=== PATIENT | male | born 1935 | race Caucasian/White ===

== ENCOUNTER 2016-09-23 08:31 | Inpatient (IN) ==
[2016-09-23] MEDS ORDERED: 0.9 % Sodium Chloride 1,000 ML IVC SCH (08:45)
[2016-09-23] MEDS ORDERED: 0.9 % Sodium Chloride 1,000 ML ONE ×2 (08:57→10:38)
[2016-09-23] MEDS ORDERED: Verapamil 5 MG/2 ML VIAL ONE (10:38)
[2016-09-23] MEDS ORDERED: *HR* Heparin 10,000 UNIT/10 ML VIAL ONE (10:39)
[2016-09-23] MEDS ORDERED: Heparin 1,000 UNITS/500 mL NS 500 ML ONE (10:39)
[2016-09-23] MEDS ORDERED: Nitroglycerin 1,000 MCG/10 ML VIAL IV ONE (10:39)
[2016-09-23] MEDS ORDERED: *HR* FentaNYL (PF) 100 MCG/2 ML VIAL ONE (10:50)
[2016-09-23] MEDS ORDERED: *HR* Midazolam HCl 5 MG/5 ML VIAL IVP ONE (10:50)
--- NOTE | 2016-09-23 11:08 | Pre-Sedation Evaluation ---
Pre-sedation evaluation - Pre-sedation checklist Date of procedure: 09/23/16 Procedure: LEFT HEART CATH Recent Vitals: Last Vital Signs Temp 96.3 F L 09/23/16 08:50 Pulse 86 09/23/16 08:50 Resp 18 09/23/16 08:50 BP 157/89 09/23/16 08:50 Pulse Ox 97 09/23/16 08:50 H&P (including ROS) documented in medical record: Yes Previous reaction to sedatives/anesthetics: No Dietary Status: NPO after Midnight Dentition: full dentition ASA Classification *see protocol: CLASS II-Mild systemic disease Plan of Care: Pt appropriate candidate for procedure/moderate/conscious sedation , Risks/benefits of procedure/sedation discussed w/ patient/family
--- NOTE | 2016-09-23 11:12 | History & Physical Report ---
Date of Encounter: 09/23/16 Time of Encounter: 11:15 24 Hour HP Update - Instructions Instructions: If the History and Physical is less than 30 days old and was completed prior to A.M. admission and or procedure and has NOT been updated on calendar day of procedure please complete this update prior to performing procedure. - Update Patient reports changes in Medical Condition: No Changes in examination, assessment, or condition: No Changes in Medication: No Preop tests/diagnostics Reviewed: Yes Surgery Remains Indicated: Yes Consent for Planned Operative Procedure(s) Verified: Yes
[2016-09-23] MEDS ORDERED: *HR* OxyCODONE/APAP 5/325 TABLET PO PRN (11:50)
[2016-09-23] MEDS ORDERED: *HR* HYDROcodone/Acet 5/325 mg TABLET PO PRN (11:50)
[2016-09-23] MEDS ORDERED: Acetaminophen 325 MG TABLET PO PRN (11:50)
[2016-09-23] MEDS ORDERED: Ondansetron 4 MG/2 ML VIAL IVP PRN (11:50)
[2016-09-23] MEDS ORDERED: *HR* Morphine 2 MG/ML SYRINGE IVP PRN (11:50)
--- NOTE | 2016-09-23 12:55 | Cardiothoracic Consult Note ---
Date of Encounter: 09/23/16 Time of Encounter: 12:52 Assessment and Plan (1) Coronary artery disease Current Visit: Yes Status: Acute The assessment and plan as outlined above was discussed with the patient and/or family members who expressed understanding and agreement. All questions were answered. The patient is a candidate for coronary artery bypass grafting. He did receive Plavix today and will need to be office [address] Smith will be her next week and we'll perform the surgery. The procedure, its risks benefits and alternatives were explained and the patient and his family wish to proceed. At this point, they have no questions. Qualifiers: Coronary Disease-Associated Artery/Lesion type: [place] artery [place] vs. transplanted heart: [place] heart Associated angina: with stable angina Qualified Code(s): I25.118 - Atherosclerotic heart disease of [place] coronary artery with other forms of angina pectoris - History of Present Illness History of present illness: Mr. Bello is a 81 year old male History of present illness. The patient is an 81-year-old gentleman who has had episodic angina. No history of myocardial infarction. Cardiac catheterization revealed preserved left ventricular function with a 90% LAD lesion. 80% circumflex lesion. A 99% lesion of the posterior descending branch of the right which does fill by collateral. Recent echocardiogram revealed no significant valvular disease. Past echo history is notable for hypercholesterolemia and hypertension. Medications include prednisone 9 mg a day and Plavix which he took today. No known allergies. Social history he lives near [place] with his . 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 He is to smoke cigarettes, but quit 18 years ago. Rarely drinks alcohol. Family history is positive for coronary artery disease. Review of systems is negative for stroke or TIA. Past Med Surg Social Fam HX - Past Medical History Medical history: coronary artery disease, GERD, hyperlipidemia, hypertension Psychiatric history: no psych history - Social History Smoking Status: Former smoker Packs per day: QUIT 18 YEARS AGO Smokeless Tobacco Status: No Alcohol use: rarely Drug use: none Medications and Allergies Aspirin [Lo-Dose Aspirin EC] 81 mg PO DAILY 09/23/16 [History] Cholecalciferol (Vitamin D3) [Vitamin D3] 2,000 unit PO DAILY 09/23/16 [History] Clopidogrel [Plavix] 75 mg PO DAILY 09/23/16 [History] Isosorbide MONOnitrate (24 HR) [Imdur] 60 mg PO DAILY 09/23/16 [History] Loratadine [Allergy Relief] 10 mg PO DAILY 09/23/16 [History] Metoprolol XL (24 HR) Succ [Toprol Xl] 1 tab PO DAILY 09/23/16 [History] Multivit-Min/FA/Lycopen/Lutein [Centrum Silver Tablet] 1 each PO DAILY 09/23/16 [History] Omeprazole 20 mg PO DAILY 09/23/16 [History] PredniSONE [Abbey] 4 mg PO QPM 09/23/16 [History] PredniSONE [Abbey] 5 mg PO QAM 09/23/16 [History] Simvastatin [Zocor] 40 mg PO HS 09/23/16 [History] Tramadol HCl [Ultram] 50 mg PO QPM 09/23/16 [History] Allergies No Known Allergies Allergy (Verified 09/23/16 08:40) All Systems Review: A 10-system review of systems was performed and is negative for pertinent findings except as documented above in the HPI. Physical Examination Pupils are equal, round and reactive to light and accommodation. He is edentulous. Neck is supple. Trachea in the midline. No thyromegaly or carotid bruits. Lungs are clear to percussion and auscultation. Heart is in a regular rate and rhythm. No murmurs, gallops or rubs. Abdomen is benign. No tenderness, rebound or guarding. No hepatosplenomegaly or masses. Extremities without edema. 1+ pulses. No saphenous vein strippings. Cranial nerves, motor and sensory intact. He is hard of hearing. Consult Discharge Plan - Plan Referrals: Kapil Lin MD [Primary Care Provider] -
[2016-09-23] MEDS: traMADol 50 MG TABLET PO SCH (17:16)
[2016-09-23] MEDS: predniSONE 1 MG TABLET PO SCH (17:46)
--- NOTE | 2016-09-24 07:21 | Cardiothoracic Progress Note ---
Date of Encounter: 09/24/16 Time of Encounter: 07:20 - Assessment and plan (1) Coronary artery disease Current Visit: Yes Status: Acute The patient will be scheduled for open heart surgery in the middle of next week. He has been on Plavix and did receive a dose yesterday. At this point, he has no questions. Qualifiers: Coronary Disease-Associated Artery/Lesion type: [place] artery [place] vs. transplanted heart: [place] heart Associated angina: with stable angina Qualified Code(s): I25.118 - Atherosclerotic heart disease of [place] coronary artery with other forms of angina pectoris - Subjective Interval history: The patient has had no angina and no chest pain. Vital Signs, Last 4 Hours Temp Pulse Resp BP Pulse Ox 09/24/16 04:00 98.0 F 63 16 142/84 94 Oxgyen Flow Rate Oxygen Flow Rate (LPM) 0 Weight 09/22/16 09/23/16 09/24/16 23:59 23:59 23:59 Weight 104.922 kg 105.6 kg Lungs are clear to percussion and auscultation. Heart is in a normal sinus rhythm. Consult Discharge Plan - Plan Referrals: Kapil Lin MD [Primary Care Provider] -
[2016-09-24] MEDS: Multivit/Ca/Min/Fe/FA 1 TAB TABLET PO SCH (08:00)
[2016-09-24] MEDS: Loratadine 10 MG TABLET PO SCH (08:00)
[2016-09-24] MEDS: Cholecalciferol (D-3) 1,000 UNIT TABLET PO SCH (08:00)
[2016-09-24] MEDS: predniSONE 5 MG TABLET PO SCH (08:00)
[2016-09-24] MEDS: Aspirin Enteric Coated 81 MG Tablet PO SCH (08:00)
[2016-09-24] MEDS: Isosorbide MONOnitrate (24 HR) 60 MG TAB.ER.24H PO SCH (08:00)
[2016-09-24] MEDS: Metoprolol XL (24 HR) Succ 50 MG TAB.ER.24H PO SCH (08:00)
[2016-09-24 10:01] LABS: Basophils # 0.1 K/mcL (0.0-0.2); Basophils % 0.5 %; Eosinophils # 0.4 K/mcL (0.0-0.6); Hematocrit 49.2 % (37.5-50.1); Hemoglobin 15.7 g/dL (12.9-16.9); Immature Granulocytes % 0.4 % (0-4); Lymphocytes # 3.2 K/mcL (0.6-4.6); Lymphocytes % 33.9 %; Mean Corpuscular HGB Conc 31.9 g/dL (31.6-35.5); Mean Corpuscular Hemoglobin 30.8 pg (28.0-33.3); Mean Corpuscular Volume 96.5 fL (83.0-100.0); Mean Platelet Volume 10.5 fL (9.4-12.4); Monocytes # 0.6 K/mcL (0.0-1.3); Monocytes % 6.7 %; Neutrophils # 5.2 K/mcL (1.6-8.9); Platelet Count 258 K/mcL (140-400); Red Cell Distribution Width 12.9 % (11.5-14.5); Segmented Neutrophils % 54.5 %
[2016-09-24 10:16] LABS: BUN/Creatinine Ratio 14 (6-26); Blood Urea Nitrogen 12 mg/dL (8-26); Calcium 9.7 mg/dL (8.6-10.8); Carbon Dioxide 29 mEq/L (19-29); Chloride 103 mEq/L (98-109); Glucose 126 mg/dL (70-99); Osmolality,Calculated 293 (280-300); Potassium 3.7 mEq/L (3.5-4.5); Sodium 141 mEq/L (136-145); eGFR For African Americans > 60 (> 60); eGFR For Non-African Americans > 60 (> 60)
--- NOTE | 2016-09-24 11:23 | Cardiology Progress Note ---
Date of Encounter: 09/24/16 Time of Encounter: 08:30 Assessment and Plan (1) Coronary artery disease Current Visit: Yes Status: Acute Per Cardiology: Catheterization showed left main 30%, proximal LAD 70%, mid LAD 95%, mid circumflex 70%, and right PDA 99% stenosis with collaterals. Seen by CT surgery with pending CABG Tuesday09/29/16. Was on Plavix as outpatient, currently washing out. Echo shows EF 55-60%, mild diastolic dysfunction, normal RV structure and function, no significant valvular dysfunction, no SWMA. On aspirin , statin (will switch/increase to Lipitor 80mg), beta lior, and long-acting nitrate. Chest pain-free-- titrate Imdur if needed. Qualifiers: Coronary Disease-Associated Artery/Lesion type: [place] artery [place] vs. transplanted heart: [place] heart Associated angina: with stable angina Qualified Code(s): I25.118 - Atherosclerotic heart disease of [place] coronary artery with other forms of angina pectoris (2) HTN (hypertension) Current Visit: Yes Status: Chronic Per Cardiology: Known history of hypertension. On home dose of beta lior. Heart rate in the 50 to 60s. Will add Norvasc 5 mg by mouth daily monitor blood pressure. Qualifiers: Hypertension type: essential hypertension Qualified Code(s): I10 - Essential (primary) hypertension Discussion w patient/family: The assessment and plan as outlined above was discussed with the patient who expressed understanding and agreement. All questions were answered. Thank you for involving us in the care of your patient. Please call with any questions. Subjective Principal diagnosis: CAD, Pending CABG, S/p cath Interval history: Patient denies any chest pain, short of breath, palpitations. Reports some mild right wrist soreness. Objective Vital Signs, Last 4 Hours Temp Pulse Resp BP Pulse Ox 09/24/16 08:00 97.7 F 60 16 172/87 96 General: Conversant, No Apparent Distress HEENT: Atraumatic, Normocephaly, Mucus Membranes Moist Neck: No JVD, Normal carotid pulses Cardiac: Reg Rate and Rhythm, Normal S1 and S2, No Murmur Lungs: Normal Breath Sounds, No Wheeze, Rales, Rhonchi Neuro: Alert and responsive, No focal deficits noted Abdomen: Soft, Non-Tender Skin: No rashes noted on visualized skin, Other (Right wrist site dry and intact , no hematoma, no ecchymosis, right radial pulse 2+ palpable) Musculoskeletal: No Chest Wall Tenderness Extremities: No Clubbing, No Cyanosis, No Edema, Normal Pulses Results 09/24/16 08:53 09/24/16 08:53 Lab Results - Imaging and Cardiology Echo: report reviewed Cardiac cath: report reviewed - EKG Interpretation EKG results cardiology: other (Sr on tele) Consult Discharge Plan - Plan Referrals: Kapil Lin MD [Primary Care Provider] -
[2016-09-24] MEDS: amLODIPine 5 MG TABLET PO SCH (11:44)
[2016-09-24] MEDS: traMADol 50 MG TABLET PO SCH (17:33)
[2016-09-24] MEDS: predniSONE 1 MG TABLET PO SCH (17:34)
--- NOTE | 2016-09-25 08:01 | Cardiothoracic Progress Note ---
Date of Encounter: 09/25/16 Time of Encounter: 08:00 - Assessment and plan (1) Coronary artery disease Current Visit: Yes Status: Acute The patient is off Plavix and will be scheduled for open heart surgery in the middle of the week. Qualifiers: Coronary Disease-Associated Artery/Lesion type: [place] artery [place] vs. transplanted heart: [place] heart Associated angina: with stable angina Qualified Code(s): I25.118 - Atherosclerotic heart disease of [place] coronary artery with other forms of angina pectoris - Subjective Interval history: The patient has no chest pain and no complaints. Vital Signs, Last 4 Hours Temp Pulse Resp BP Pulse Ox 09/25/16 06:49 97.9 F 63 16 148/85 97 Oxgyen Flow Rate Oxygen Flow Rate (LPM) 0 Weight 09/23/16 09/24/16 09/25/16 23:59 23:59 23:59 Weight 104.922 kg 105.6 kg Lungs are clear to percussion and auscultation. Heart is in a normal sinus rhythm. - Labs 09/24/16 08:53 09/24/16 08:53 Lab Results, Last 24 hours 09/24/16 09/24/16 08:53 08:53 WBC 9.5 Hgb 15.7 Hct 49.2 Plt Count 258 Sodium 141 Potassium 3.7 Chloride 103 Carbon Dioxide 29 BUN 12 Creatinine 0.87 Glucose 126 H Calcium 9.7 Consult Discharge Plan - Plan Referrals: Kapil Lin MD [Primary Care Provider] -
[2016-09-25] MEDS: Loratadine 10 MG TABLET PO SCH (08:20)
[2016-09-25] MEDS: Cholecalciferol (D-3) 1,000 UNIT TABLET PO SCH (08:20)
[2016-09-25] MEDS: Aspirin Enteric Coated 81 MG Tablet PO SCH (08:20)
[2016-09-25] MEDS: Multivit/Ca/Min/Fe/FA 1 TAB TABLET PO SCH (08:21)
[2016-09-25] MEDS: amLODIPine 5 MG TABLET PO SCH (08:21)
[2016-09-25] MEDS: Metoprolol XL (24 HR) Succ 50 MG TAB.ER.24H PO SCH (08:21)
[2016-09-25] MEDS: predniSONE 5 MG TABLET PO SCH (08:21)
[2016-09-25] MEDS: Isosorbide MONOnitrate (24 HR) 60 MG TAB.ER.24H PO SCH (08:21)
--- NOTE | 2016-09-25 12:22 | Electrocardiograph Report ---
[place] [id number] Test Date: 2016-09-23 Pat Name: Wade Bello Department: 106 Room: 2NE17 Gender: M Sports Physical Therapist: : 1935 Requested By: Kash Contreras Order Number: [id number] Reading MD: Kwesi Wilson Measurements Intervals [place] Rate: 68 P: 39 UT: 176 QRS: -24 QRSD: 93 T: 135 QT: 367 QTc: 385 Interpretive Statements SINUS RHYTHM BORDERLINE LEFT AXIS DEVIATION LEFT VENTRICULAR HYPERTROPHY AND ST-T CHANGE Electronically Signed On 09-25-2016 12:20:30 EDT by Kwesi Wilson
--- NOTE | 2016-09-25 12:28 | Electrocardiograph Report ---
[place] [id number] Test Date: 2016-09-23 Pat Name: Wade Bello Department: 111 Room: 2NE17 Gender: M Quality Nurse: ROCAEL : 1935 Requested By: Kwesi Wilson Order Number: [id number] Reading MD: Kwesi Wilson Measurements Intervals [place] Rate: 72 P: 52 [place]: 185 QRS: -15 QRSD: 96 T: 129 QT: 370 QTc: 394 Interpretive Statements SINUS RHYTHM LEFT VENTRICULAR HYPERTROPHY AND ST-T CHANGE Electronically Signed On 09-25-2016 12:27:05 EDT by Kwesi Wilson
--- NOTE | 2016-09-25 12:37 | Cardiology Progress Note ---
Date of Encounter: 09/25/16 Time of Encounter: 12:00 Assessment and Plan (1) Coronary artery disease Current Visit: Yes Status: Acute Per Cardiology: Elective C 09/23/16 showed left main 30%, proximal LAD 70%, mid LAD 95%, mid circumflex 70%, and right PDA 99% stenosis with collaterals. Seen by CT surgery with pending CABG mid next week. Was on Plavix as outpatient, currently washing out. Echo shows EF 55-60%, mild diastolic dysfunction, normal RV structure and function, no significant valvular dysfunction, no SWMA. On aspirin, statin ( will switch/increase to Lipitor 80mg), beta lior, and long-acting nitrate. Reports one episode of chest pain. May be related to him taking his pills. I will increase imdur. Qualifiers: Coronary Disease-Associated Artery/Lesion type: [place] artery [place] vs. transplanted heart: [place] heart Associated angina: with stable angina Qualified Code(s): I25.118 - Atherosclerotic heart disease of [place] coronary artery with other forms of angina pectoris (2) HTN (hypertension) Current Visit: Yes Status: Chronic Per Cardiology: Blood pressure acceptable. norvasc added yesterday. Qualifiers: Hypertension type: essential hypertension Qualified Code(s): I10 - Essential (primary) hypertension Discussion w patient/family: The assessment and plan as outlined above was discussed with the patient and/or family members who expressed understanding and agreement. All questions were answered. Thank you for involving us in the care of your patient. Please call with any questions. Subjective Principal diagnosis: CAD, Pending CABG, S/p cath Interval history: Reports chest pain this morning after taking his pills. He says it just felt like his pills were stuck in his esophogus. Denies SOB. Objective Vital Signs, Last 4 Hours Pulse Resp BP Pulse Ox 09/25/16 11:17 73 16 136/74 95 General: Conversant, No Apparent Distress HEENT: Atraumatic, Normocephaly, Mucus Membranes Moist Neck: No JVD, Normal carotid pulses Cardiac: Reg Rate and Rhythm, Normal S1 and S2, No Murmur Lungs: Normal Breath Sounds, No Wheeze, Rales, Rhonchi Neuro: Alert and responsive, No focal deficits noted Abdomen: Soft, Non-Tender Skin: No rashes noted on visualized skin Musculoskeletal: No Chest Wall Tenderness Extremities: No Clubbing, No Cyanosis, No Edema, Normal Pulses Results 09/24/16 08:53 09/24/16 08:53 - Imaging and Cardiology Echo: report reviewed Consult Discharge Plan - Plan Referrals: Kapil Lin MD [Primary Care Provider] -
[2016-09-25] MEDS ORDERED: Isosorbide MONOnitrate (24 HR) 30 MG TAB.ER.24H PO ONE (12:41)
[2016-09-25] MEDS: predniSONE 1 MG TABLET PO SCH (17:16)
[2016-09-25] MEDS: traMADol 50 MG TABLET PO SCH (17:17)
[2016-09-26 04:09] LABS: Hematocrit 43.9 % (37.5-50.1); Hemoglobin 14.8 g/dL (12.9-16.9); Mean Corpuscular HGB Conc 33.7 g/dL (31.6-35.5); Mean Corpuscular Hemoglobin 31.8 pg (28.0-33.3); Mean Corpuscular Volume 94.4 fL (83.0-100.0); Mean Platelet Volume 10.2 fL (9.4-12.4); Platelet Count 229 K/mcL (140-400); Red Blood Count 4.65 M/mcL (4.19-5.50); Red Cell Distribution Width 12.9 % (11.5-14.5)
[2016-09-26 04:24] LABS: BUN/Creatinine Ratio 15 (6-26); Blood Urea Nitrogen 13 mg/dL (8-26); Calcium 9.2 mg/dL (8.6-10.8); Carbon Dioxide 24 mEq/L (19-29); Chloride 107 mEq/L (98-109); Glucose 118 mg/dL (70-99); Osmolality,Calculated 289 (280-300); Potassium 4.3 mEq/L (3.5-4.5); Sodium 139 mEq/L (136-145); eGFR For African Americans > 60 (> 60); eGFR For Non-African Americans > 60 (> 60)
[2016-09-26] MEDS: Cholecalciferol (D-3) 1,000 UNIT TABLET PO SCH (08:17)
[2016-09-26] MEDS: Isosorbide MONOnitrate (24 HR) 30 MG TAB.ER.24H PO SCH (08:18)
[2016-09-26] MEDS: Aspirin Enteric Coated 81 MG Tablet PO SCH (08:18)
[2016-09-26] MEDS: Loratadine 10 MG TABLET PO SCH (08:19)
[2016-09-26] MEDS: amLODIPine 5 MG TABLET PO SCH (08:19)
[2016-09-26] MEDS: Metoprolol XL (24 HR) Succ 50 MG TAB.ER.24H PO SCH (08:19)
[2016-09-26] MEDS: Multivit/Ca/Min/Fe/FA 1 TAB TABLET PO SCH (08:19)
[2016-09-26] MEDS: predniSONE 5 MG TABLET PO SCH (08:19)
--- NOTE | 2016-09-26 08:43 | Cardiothoracic Progress Note ---
Date of Encounter: 09/26/16 Time of Encounter: 08:42 - Assessment and plan (1) Coronary artery disease Current Visit: Yes Status: Acute Hopefully, we can do the patient's open heart surgery next Tuesday. Qualifiers: Coronary Disease-Associated Artery/Lesion type: [place] artery [place] vs. transplanted heart: [place] heart Associated angina: with stable angina Qualified Code(s): I25.118 - Atherosclerotic heart disease of [place] coronary artery with other forms of angina pectoris - Subjective Interval history: The patient has no chest pain or angina and no complaints. He is anxious to have his surgery. Vital Signs, Last 4 Hours Temp Pulse Resp BP Pulse Ox 09/26/16 07:12 97.8 F 65 16 154/95 97 Oxgyen Flow Rate Oxygen Flow Rate (LPM) 0 Weight 09/24/16 09/25/16 09/26/16 23:59 23:59 23:59 Weight 105.6 kg 105.3 kg Lungs are clear to percussion and auscultation. Heart is in a normal sinus rhythm. - Labs 09/26/16 03:53 09/26/16 03:53 Lab Results, Last 24 hours 09/26/16 09/26/16 03:53 03:53 WBC 8.9 Hgb 14.8 Hct 43.9 Plt Count 229 Sodium 139 Potassium 4.3 Chloride 107 Carbon Dioxide 24 BUN 13 Creatinine 0.86 Glucose 118 H Calcium 9.2 Consult Discharge Plan - Plan Referrals: Kapil Lin MD [Primary Care Provider] -
--- NOTE | 2016-09-26 09:30 | Cardiology Progress Note ---
Date of Encounter: 09/26/16 Time of Encounter: 09:29 Assessment and Plan (1) Coronary artery disease Current Visit: Yes Status: Acute Per Cardiology: Elective [facility] 09/23/16 showed left main 30%, proximal LAD 70%, mid LAD 95%, mid circumflex 70%, and right PDA 99% stenosis with collaterals. Seen by CT surgery with pending CABG mid next week. Was on Plavix as outpatient, currently washing out. Echo shows EF 55-60%, mild diastolic dysfunction, normal RV structure and function, no significant valvular dysfunction, no SWMA. On aspirin, statin ( will switch/increase to Lipitor 80mg), beta lior, and long-acting nitrate. Qualifiers: Coronary Disease-Associated Artery/Lesion type: [place] artery [place] vs. transplanted heart: [place] heart Associated angina: with stable angina Qualified Code(s): I25.118 - Atherosclerotic heart disease of [place] coronary artery with other forms of angina pectoris Discussion w patient/family: The assessment and plan as outlined above was discussed with the patient and/or family members who expressed understanding and agreement. All questions were answered. Thank you for involving us in the care of your patient. Please call with any questions. Subjective Principal diagnosis: CAD, Pending CABG, S/p cath Interval history: Denies any complaint today. Objective Vital Signs, Last 4 Hours Temp Pulse Resp BP Pulse Ox 09/26/16 07:12 97.8 F 65 16 154/95 97 General: Conversant, No Apparent Distress HEENT: Atraumatic, Normocephaly, Mucus Membranes Moist Neck: No JVD, Normal carotid pulses Cardiac: Reg Rate and Rhythm, Normal S1 and S2, No Murmur Lungs: Normal Breath Sounds, No Wheeze, Rales, Rhonchi Neuro: Alert and responsive, No focal deficits noted Abdomen: Soft, Non-Tender Skin: No rashes noted on visualized skin Musculoskeletal: No Chest Wall Tenderness Results 09/26/16 03:53 09/26/16 03:53 Lab Results 09/26/16 09/26/16 03:53 03:53 WBC 8.9 Hgb 14.8 Hct 43.9 Plt Count 229 Sodium 139 Potassium 4.3 Chloride 107 Carbon Dioxide 24 BUN 13 Creatinine 0.86 Glucose 118 H Calcium 9.2 Consult Discharge Plan - Plan Referrals: Kapil Lin MD [Primary Care Provider] -
[2016-09-26] MEDS: traMADol 50 MG TABLET PO SCH (17:40)
[2016-09-26] MEDS: predniSONE 1 MG TABLET PO SCH (17:40)
[2016-09-27] MEDS: Isosorbide MONOnitrate (24 HR) 30 MG TAB.ER.24H PO SCH (09:32)
[2016-09-27] MEDS: Metoprolol XL (24 HR) Succ 50 MG TAB.ER.24H PO SCH (09:32)
[2016-09-27] MEDS: Multivit/Ca/Min/Fe/FA 1 TAB TABLET PO SCH (09:32)
[2016-09-27] MEDS: Cholecalciferol (D-3) 1,000 UNIT TABLET PO SCH (09:34)
[2016-09-27] MEDS: Loratadine 10 MG TABLET PO SCH (09:35)
[2016-09-27] MEDS: Aspirin Enteric Coated 81 MG Tablet PO SCH (09:35)
[2016-09-27] MEDS: amLODIPine 5 MG TABLET PO SCH (09:35)
[2016-09-27] MEDS: predniSONE 5 MG TABLET PO SCH (09:35)
[2016-09-27] MEDS ORDERED: ceFAZolin 2,000 MG in D5% in Water 100 ML IVPB ONE ×2 (09:37→10:00)
--- NOTE | 2016-09-27 09:37 | Cardiothoracic Progress Note ---
Date of Encounter: 09/27/16 Time of Encounter: 09:36 - Assessment and plan (1) Coronary artery disease Current Visit: Yes Status: Acute The patient denies any substernal chest pain or shortness of breath. He is tentatively scheduled for CABG on Tuesday, September 29, 2016. The assessment and plan as outlined above was discussed with the patient and/or family members who expressed understanding and agreement. All questions were answered. Qualifiers: Coronary Disease-Associated Artery/Lesion type: [place] artery [place] vs. transplanted heart: [place] heart Associated angina: with stable angina Qualified Code(s): I25.118 - Atherosclerotic heart disease of [place] coronary artery with other forms of angina pectoris - Subjective Interval history: The patient denies any substernal chest pain or shortness of breath. Vital Signs, Last 4 Hours Temp Pulse Resp BP Pulse Ox 09/27/16 07:30 97.7 F 62 18 157/85 92 Oxgyen Flow Rate Oxygen Flow Rate (LPM) 0 Weight 09/25/16 09/26/16 09/27/16 23:59 23:59 23:59 Weight 105.3 kg - Physical Examination General: Conversant, No Apparent Distress Neck: No JVD Cardiac: Reg Rate and Rhythm, Normal S1 and S2, No Murmur Lungs: Normal Breath Sounds, No Wheeze, Rales, Rhonchi Neuro: Alert and responsive, No focal deficits noted Vascular: Normal capillary refill Musculoskeletal: No Chest Wall Tenderness Extremities: No Clubbing, No Cyanosis, No Edema, Normal Pulses - Labs 09/26/16 03:53 09/26/16 03:53 Consult Discharge Plan - Plan Referrals: Kapil Lin MD [Primary Care Provider] -
[2016-09-27 12:17] LABS: Hemoglobin A1C 5.4 %
--- NOTE | 2016-09-27 12:54 | Cardiology Progress Note ---
Date of Encounter: 09/27/16 Time of Encounter: 12:52 Assessment and Plan (1) Coronary artery disease Current Visit: Yes Status: Acute Per Cardiology: Elective C 09/23/16 showed left main 30%, proximal LAD 70%, mid LAD 95%, mid circumflex 70%, and right PDA 99% stenosis with collaterals. Seen by CT surgery with pending CABG Tuesday. Was on Plavix as outpatient, currently washing out. Echo shows EF 55-60%, mild diastolic dysfunction, normal RV structure and function, no significant valvular dysfunction, no SWMA. On aspirin, statin ( will switch/increase to Lipitor 80mg), beta lior, and long-acting nitrate. Qualifiers: Coronary Disease-Associated Artery/Lesion type: [place] artery [place] vs. transplanted heart: [place] heart Associated angina: with stable angina Qualified Code(s): I25.118 - Atherosclerotic heart disease of [place] coronary artery with other forms of angina pectoris (2) HTN (hypertension) Current Visit: Yes Status: Chronic Per Cardiology: Mildly elevated this AM prior to med administration. Will continue to monitor and adjust as necessary. Qualifiers: Hypertension type: essential hypertension Qualified Code(s): I10 - Essential (primary) hypertension Discussion w patient/family: The assessment and plan as outlined above was discussed with the patient and/or family members who expressed understanding and agreement. All questions were answered. Thank you for involving us in the care of your patient. Please call with any questions. I will discuss all the above with Dr. Breen and make changes as necessary. Subjective Principal diagnosis: CAD, Pending CABG, S/p cath Interval history: Pt denies any acute complaints this AM. Denies chest pain or dyspnea. Objective Vital Signs, Last 4 Hours Pulse Ox 09/27/16 09:00 92 Vital Signs Temp Pulse Resp BP Pulse Ox 09/27/16 09:00 92 09/27/16 07:30 97.7 F 62 18 157/85 92 09/26/16 20:27 98.3 F 79 17 145/94 95 09/26/16 15:09 98.3 F 90 16 162/98 97 Intake and Output 09/26/16 09/27/16 09/27/16 23:59 07:59 15:59 Intake Total 240 / 240 240 / 240 Balance 240 / 240 240 / 240 Intake: Oral 240 / 240 240 / 240 Other: Meal Dinner Breakfast Percent of Meal Consumed 100% 75% General: Conversant, No Apparent Distress HEENT: Atraumatic, Normocephaly, Mucus Membranes Moist Neck: No JVD, Normal carotid pulses Cardiac: Reg Rate and Rhythm, Normal S1 and S2, No Murmur Lungs: Normal Breath Sounds, No Wheeze, Rales, Rhonchi Neuro: Alert and responsive, No focal deficits noted Abdomen: Soft, Non-Tender Skin: No rashes noted on visualized skin Musculoskeletal: No Chest Wall Tenderness Extremities: No Clubbing, No Cyanosis, No Edema, Normal Pulses Results 09/26/16 03:53 09/26/16 03:53 Active Medications Acetaminophen (Tylenol) 650 mg PO Q6HR PRN PRN Reason: Mild Pain Stop: 03/25/17 11:51 Acetaminophen/Hydrocodone Bitart ([place] 5-325 Mg) 1 tab PO Q4HR PRN PRN Reason: Moderate Pain Stop: 03/25/17 11:51 Amlodipine Besylate (Norvasc) 5 mg PO DAILY ISAAC PRN Reason: Protocol Stop: 03/26/17 11:31 Last Admin: 09/27/16 09:35 Dose: 5 mg Aspirin (Aspirin Ec) 81 mg PO DAILY [facility] Stop: 03/26/17 09:01 Last Admin: 09/27/16 09:35 Dose: 81 mg Atorvastatin Calcium (Lipitor) 80 mg PO HS [facility] Stop: 03/26/17 21:01 Last Admin: 09/26/16 21:01 Dose: 80 mg Calcium Carbonate (Tums) 1,000 mg PO TID ISAAC PRN Reason: Protocol Stop: 03/28/17 18:01 Last Admin: 09/27/16 09:35 Dose: 1,000 mg Chlorhexidine Gluconate (Chlorhexidine Rinse) 15 ml MM 0700,1900 [facility] Stop: 09/29/16 07:01 Diphenhydramine HCl (Benadryl) 25 mg PO HS PRN PRN Reason: Insomnia Stop: 03/25/17 11:51 Cefazolin Sodium 2,000 mg/ (Dextrose) 100 mls @ 200 mls/hr IVPB PREOP ONE PRN Reason: Protocol Stop: 09/29/16 07:29 Isosorbide Mononitrate (Imdur) 90 mg PO DAILY [facility] Stop: 03/28/17 09:01 Last Admin: 09/27/16 09:32 Dose: 90 mg Loratadine (Claritin) 10 mg PO DAILY ISAAC PRN Reason: Protocol Stop: 03/26/17 09:01 Last Admin: 09/27/16 09:35 Dose: 10 mg Metoprolol Succinate (Toprol Xl) 50 mg PO DAILY [facility] Stop: 03/26/17 09:01 Last Admin: 09/27/16 09:32 Dose: 50 mg Morphine Sulfate (Morphine Sulfate) 2 mg IVP Q2H PRN PRN Reason: Severe Pain Stop: 03/25/17 11:51 Multivitamins/Calcium (Thera M Plus) 1 tab PO DAILY [facility] Stop: 03/26/17 09:01 Last Admin: 09/27/16 09:32 Dose: 1 tab Omeprazole (Prilosec) 20 mg PO DAILY [facility] Stop: 03/26/17 09:01 Last Admin: 09/27/16 09:32 Dose: 20 mg Ondansetron HCl (Zofran) 4 mg IVP Q6HR PRN; Protocol PRN Reason: Nausea And Vomiting Stop: 03/25/17 11:51 Oxycodone/Acetaminophen (Percocet 5/325) 1 each PO Q4HR PRN PRN Reason: Severe Pain Stop: 03/25/17 11:51 Prednisone (Prednisone) 4 mg PO QPM [facility] Stop: 03/25/17 18:01 Last Admin: 09/26/16 17:40 Dose: 4 mg Prednisone (Prednisone) 5 mg PO QAM [facility] Stop: 03/26/17 09:01 Last Admin: 09/27/16 09:35 Dose: 5 mg Tramadol HCl (Ultram) 50 mg PO QPM [facility] Stop: 03/25/17 18:01 Last Admin: 09/26/16 17:40 Dose: 50 mg Vitamin D (Vitamin D) 2,000 unit PO DAILY [facility] Stop: 03/26/17 09:01 Last Admin: 09/27/16 09:34 Dose: 2,000 unit - Imaging and Cardiology Cardiac cath: report reviewed Consult Discharge Plan - Plan Referrals: Kapil Lin MD [Primary Care Provider] -
--- NOTE | 2016-09-27 15:31 | Anesthesia Evaluation PreOp ---
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: Denies Any Significant HX Other Medical History: GERD Alcohol Use: rarely Drug use: none Medications and Allergies Aspirin [Lo-Dose Aspirin EC] 81 mg PO DAILY 09/23/16 [History] Cholecalciferol (Vitamin D3) [Vitamin D3] 2,000 unit PO DAILY 09/23/16 [History] Clopidogrel [Plavix] 75 mg PO DAILY 09/23/16 [History] Isosorbide MONOnitrate (24 HR) [Imdur] 60 mg PO DAILY 09/23/16 [History] Loratadine [Allergy Relief] 10 mg PO DAILY 09/23/16 [History] Metoprolol XL (24 HR) Succ [Toprol Xl] 50 mg PO DAILY 09/23/16 [History] Multivit-Min/FA/Lycopen/Lutein [Centrum Silver Tablet] 1 each PO DAILY 09/23/16 [History] Nitroglycerin [Nitrostat] 0.4 mg SL Q5M PRN 09/23/16 [History] Omeprazole 20 mg PO DAILY 09/23/16 [History] Simvastatin [Zocor] 40 mg PO HS 09/23/16 [History] Tramadol HCl [Ultram] 50 mg PO BID PRN 09/23/16 [History] predniSONE [PredniSONE] 5 mg PO BIDWM 09/23/16 [History] Allergies No Known Allergies Allergy (Verified 09/23/16 08:40) - Meds/Allergy Pre-op Review Medications Reviewed: Yes Allergies Reviewed: Yes Beta Blockers on Current Med List: Yes If Beta Blockers taken, Date/Time (Last Dose taken): 522 on 09/29 Anesthesia Results - Labs 09/26/16 03:53 09/26/16 03:53 - Imaging EKG: report reviewed Additional studies: cath shows 3 vessel disease, echo shows no valvular disease, EF 55-60% Anesthesia Exam Selected Entries 09/29/16 02:43 Temperature 98.0 F Pulse Rate 67 Respiratory Rate 18 Blood Pressure 136/85 O2 Sat by Pulse Oximetry 90 Height: 69in Weight: 226lbs/103kg NPO (# of Hours): 8 Pain Scale: 0 Pain Scale Used: Numeric (1 - 10) - HEENT Pupil (Motor): EOMI Mallampati: II Teeth: Edentulous Oral Opening: Greater than 3 - NUT PACKER LOC: Oriented NUT PACKER Motor: Normal RUE, Normal LUE, Normal RLE, Normal LLE, Normal Face NUT PACKER Sensory: Normal: RUE, LUE, RLE, LLE, Face - Cardiac Rhythm: Regular Murmur: None - Pulmonary Breath Sounds: bilateral Clear Respiratory Effort: Symmetrical Anesthesia Assess/Plan ASA Score: 3 Modified Living[place] Scale for Level of Consciousness: Cooperative, oriented, and tranquil Anesthetic Plan: General Monitoring Plan: Standard Monitors, A-Line, PAC, JEAN PAUL Recovery Plan: ICU (Discussed risks of GA, lines, JEAN PAUL and blood products. Questions answered and agrees to proceed.)
[2016-09-27] MEDS: traMADol 50 MG TABLET PO SCH (16:47)
[2016-09-27] MEDS: predniSONE 1 MG TABLET PO SCH (16:48)
--- NOTE | 2016-09-28 07:13 | Cardiothoracic Progress Note ---
Date of Encounter: 09/28/16 Time of Encounter: 07:12 - Assessment and plan (1) Coronary artery disease Current Visit: Yes Status: Acute The patient denies any substernal chest pain or shortness of breath. He is tentatively scheduled for CABG on Tuesday, September 29, 2016. The assessment and plan as outlined above was discussed with the patient and/or family members who expressed understanding and agreement. All questions were answered. Qualifiers: Coronary Disease-Associated Artery/Lesion type: [place] artery [place] vs. transplanted heart: [place] heart Associated angina: with stable angina Qualified Code(s): I25.118 - Atherosclerotic heart disease of [place] coronary artery with other forms of angina pectoris - Subjective Interval history: The patient denies any substernal chest pain or shortness of breath. Vital Signs, Last 4 Hours Temp Pulse Resp BP Pulse Ox 09/28/16 06:43 97.5 F L 100 18 153/94 98 09/28/16 05:02 97.7 F 77 16 126/78 96 [place] Flow Rate Oxygen Flow Rate (LPM) 0 Weight 09/26/16 09/27/16 09/28/16 23:59 23:59 23:59 Weight 105.3 kg 103.1 kg - Physical Examination General: Conversant, No Apparent Distress Neck: No JVD, Normal carotid pulses Cardiac: Reg Rate and Rhythm, Normal S1 and S2, No Murmur Lungs: Normal Breath Sounds, No Wheeze, Rales, Rhonchi Neuro: Alert and responsive, No focal deficits noted Vascular: Normal capillary refill Musculoskeletal: No Chest Wall Tenderness Extremities: No Clubbing, No Cyanosis, No Edema - Labs 09/26/16 03:53 09/26/16 03:53 Consult Discharge Plan - Plan Referrals: Kapil Lin MD [Primary Care Provider] -
[2016-09-28] MEDS: Multivit/Ca/Min/Fe/FA 1 TAB TABLET PO SCH (08:40)
[2016-09-28] MEDS: amLODIPine 5 MG TABLET PO SCH (08:40)
[2016-09-28] MEDS: Metoprolol XL (24 HR) Succ 50 MG TAB.ER.24H PO SCH (08:41)
[2016-09-28] MEDS: Cholecalciferol (D-3) 1,000 UNIT TABLET PO SCH (08:41)
[2016-09-28] MEDS: predniSONE 5 MG TABLET PO SCH (08:41)
[2016-09-28] MEDS: Loratadine 10 MG TABLET PO SCH (08:41)
[2016-09-28] MEDS: Isosorbide MONOnitrate (24 HR) 30 MG TAB.ER.24H PO SCH (08:42)
[2016-09-28] MEDS: Aspirin Enteric Coated 81 MG Tablet PO SCH (08:42)
[2016-09-28] MEDS ORDERED: amLODIPine 5 MG TABLET PO ONE (12:00)
--- NOTE | 2016-09-28 12:00 | Cardiology Progress Note ---
Date of Encounter: 09/28/16 Time of Encounter: 11:58 Assessment and Plan (1) Coronary artery disease Current Visit: Yes Status: Acute Per Cardiology: Elective LHC 09/23/16 showed left main 30%, proximal LAD 70%, mid LAD 95%, mid circumflex 70%, and right PDA 99% stenosis with collaterals. Seen by CT surgery with pending CABG Tuesday. Was on Plavix as outpatient, currently washing out. Echo shows EF 55-60%, mild diastolic dysfunction, normal RV structure and function, no significant valvular dysfunction, no SWMA. On aspirin, statin, beta lior, and long-acting nitrate. Qualifiers: Coronary Disease-Associated Artery/Lesion type: [place] artery [place] vs. transplanted heart: [place] heart Associated angina: with stable angina Qualified Code(s): I25.118 - Atherosclerotic heart disease of [place] coronary artery with other forms of angina pectoris (2) HTN (hypertension) Current Visit: Yes Status: Chronic Per Cardiology: Elevated this AM 190/102. Will increase Norvasc to 10mg daily. Qualifiers: Hypertension type: essential hypertension Qualified Code(s): I10 - Essential (primary) hypertension Discussion w patient/family: The assessment and plan as outlined above was discussed with the patient and/or family members who expressed understanding and agreement. All questions were answered. Thank you for involving us in the care of your patient. Please call with any questions. I will discuss all the above with Dr. Breen and make changes as necessary. Subjective Principal diagnosis: CAD, Pending CABG, S/p cath Interval history: Pt denies any acute complaints this AM. Denies chest pain or dyspnea. Objective Vital Signs, Last 4 Hours Temp Pulse Resp BP Pulse Ox 09/28/16 11:05 98.1 F 90 18 190/108 94 09/28/16 09:12 98 Vital Signs Temp Pulse Resp BP Pulse Ox 09/28/16 11:05 98.1 F 90 18 190/108 94 09/28/16 09:12 98 09/28/16 06:43 97.5 F L 100 18 153/94 98 09/28/16 05:02 97.7 F 77 16 126/78 96 09/27/16 19:07 98.4 F 82 17 144/84 97 09/27/16 15:48 98.0 F 72 18 147/87 95 09/27/16 14:55 97.8 F 75 18 145/76 95 Intake and Output 09/27/16 09/28/16 09/28/16 23:59 07:59 15:59 Intake Total 240 / 240 120 / 120 Balance 240 / 240 120 / 120 Intake: Oral 240 / 240 120 / 120 Other: Meal Breakfast Percent of Meal Consumed 50% 100% # Voids 1 1 Weight 103.1 kg Patient Weight 09/28/16 23:59 Weight 103.1 kg General: Conversant, No Apparent Distress HEENT: Atraumatic, Normocephaly, Mucus Membranes Moist Neck: No JVD, Normal carotid pulses Cardiac: Reg Rate and Rhythm Lungs: Normal Breath Sounds Neuro: Alert and responsive, No focal deficits noted Abdomen: Soft, Non-Tender Skin: No rashes noted on visualized skin Musculoskeletal: No Chest Wall Tenderness Extremities: No Clubbing, No Cyanosis, No Edema, Normal Pulses Results 09/26/16 03:53 09/26/16 03:53 Active Medications Acetaminophen (Tylenol) 650 mg PO Q6HR PRN PRN Reason: Mild Pain Stop: 03/25/17 11:51 Acetaminophen/Hydrocodone Bitart ([place] 5-325 Mg) 1 tab PO Q4HR PRN PRN Reason: Moderate Pain Stop: 03/25/17 11:51 Amlodipine Besylate (Norvasc) 5 mg PO DAILY ISAAC PRN Reason: Protocol Stop: 03/26/17 11:31 Last Admin: 09/28/16 08:40 Dose: 5 mg Aspirin (Aspirin Ec) 81 mg PO DAILY [facility] Stop: 03/26/17 09:01 Last Admin: 09/28/16 08:42 Dose: 81 mg Atorvastatin Calcium (Lipitor) 80 mg PO HS [facility] Stop: 03/26/17 21:01 Last Admin: 09/27/16 20:20 Dose: 80 mg Calcium Carbonate (Tums) 1,000 mg PO TID ISAAC PRN Reason: Protocol Stop: 03/28/17 18:01 Last Admin: 09/28/16 08:40 Dose: 1,000 mg Chlorhexidine Gluconate (Chlorhexidine Rinse) 15 ml MM 0700,1900 [facility] Stop: 09/29/16 07:01 Diphenhydramine HCl (Benadryl) 25 mg PO HS PRN PRN Reason: Insomnia Stop: 03/25/17 11:51 Cefazolin Sodium 2,000 mg/ (Dextrose) 100 mls @ 200 mls/hr IVPB PREOP ONE PRN Reason: Protocol Stop: 09/29/16 07:29 Isosorbide Mononitrate (Imdur) 90 mg PO DAILY [facility] Stop: 03/28/17 09:01 Last Admin: 09/28/16 08:42 Dose: 90 mg Loratadine (Claritin) 10 mg PO DAILY [facility] PRN Reason: Protocol Stop: 03/26/17 09:01 Last Admin: 09/28/16 08:41 Dose: 10 mg Metoprolol Succinate (Toprol Xl) 50 mg PO DAILY [facility] Stop: 03/26/17 09:01 Last Admin: 09/28/16 08:41 Dose: 50 mg Morphine Sulfate (Morphine Sulfate) 2 mg IVP Q2H PRN PRN Reason: Severe Pain Stop: 03/25/17 11:51 Multivitamins/Calcium (Thera M Plus) 1 tab PO DAILY [facility] Stop: 03/26/17 09:01 Last Admin: 09/28/16 08:40 Dose: 1 tab Omeprazole (Prilosec) 20 mg PO DAILY [facility] Stop: 03/26/17 09:01 Last Admin: 09/28/16 08:41 Dose: 20 mg Ondansetron HCl (Zofran) 4 mg IVP Q6HR PRN; Protocol PRN Reason: Nausea And Vomiting Stop: 03/25/17 11:51 Oxycodone/Acetaminophen (Percocet 5/325) 1 each PO Q4HR PRN PRN Reason: Severe Pain Stop: 03/25/17 11:51 Prednisone (Prednisone) 4 mg PO QPM [facility] Stop: 03/25/17 18:01 Last Admin: 09/27/16 16:48 Dose: 4 mg Prednisone (Prednisone) 5 mg PO QAM [facility] Stop: 03/26/17 09:01 Last Admin: 09/28/16 08:41 Dose: 5 mg Tramadol HCl (Ultram) 50 mg PO QPM [facility] Stop: 03/25/17 18:01 Last Admin: 09/27/16 16:47 Dose: 50 mg Vitamin D (Vitamin D) 2,000 unit PO DAILY [facility] Stop: 03/26/17 09:01 Last Admin: 09/28/16 08:41 Dose: 2,000 unit - Imaging and Cardiology Cardiac cath: report reviewed Consult Discharge Plan - Plan Referrals: Kapil Lin MD [Primary Care Provider] -
[2016-09-28] MEDS: traMADol 50 MG TABLET PO SCH (17:53)
[2016-09-28] MEDS: predniSONE 1 MG TABLET PO SCH (17:54)
[2016-09-28] MEDS: Chlorhexidine Rinse 15 ML MOUTHWASH MM SCH (18:36)
[2016-09-29] MEDS: Metoprolol XL (24 HR) Succ 50 MG TAB.ER.24H PO SCH (05:23)
[2016-09-29] MEDS: Chlorhexidine Rinse 15 ML MOUTHWASH MM SCH ×2 (05:23→19:57)
[2016-09-29] MEDS: Aspirin Enteric Coated 81 MG Tablet PO SCH (06:27)
[2016-09-29] MEDS ORDERED: *HR* Phenylephrine 10 MG/ML VIAL ONE (06:55)
[2016-09-29] MEDS ORDERED: *HR* Rocuronium Bromide 50 MG/5 ML VIAL ONE (06:55)
[2016-09-29] MEDS ORDERED: *HR* Norepinephrine 4 MG/4 ML VIAL IVC ONE (06:55)
[2016-09-29] MEDS ORDERED: Tranexamic Acid 1,000 MG/10 ML VIAL ONE ×2 (06:56→09:39)
[2016-09-29] MEDS ORDERED: Protamine Sulfate 250 MG/25 ML VIAL IVP ONE (06:56)
[2016-09-29] MEDS ORDERED: Famotidine 20 MG/2 ML VIAL ONE (06:56)
[2016-09-29] MEDS ORDERED: *HR* Etomidate 20 MG/10 ML AMPUL IVP ONE (06:56)
[2016-09-29] MEDS ORDERED: ceFAZolin 2,000 MG in D5% in Water 100 ML IVPB ONE (07:00)
[2016-09-29] MEDS ORDERED: *HR* Midazolam HCl 5 MG/5 ML VIAL IVP ONE (07:03)
[2016-09-29] MEDS ORDERED: *HR* FentaNYL (PF) 1,000 MCG/20 ML VIAL ONE (07:03)
[2016-09-29] MEDS ORDERED: Nitroglycerin 25 MG/250 ML INFUS..BTL IVC ONE ×2 (07:06→10:40)
[2016-09-29] MEDS ORDERED: Insulin Regular, Human 100 UNIT/ML ONE (07:06)
[2016-09-29] MEDS ORDERED: NiCARdipine 2.5 MG/10 ML Syringe IVPB ONE (07:08)
--- NOTE | 2016-09-29 08:40 | Anesthesia Procedures ---
Date of Encounter: 09/29/16 Time of Encounter: 07:45 Procedures: Anesthesia - Arterial Line Consent obtained: written consent Time out performed: Yes Sedation: Versed (mg): 2 Sedation: Fentanyl (mcg): 100 Supplemental Oxygen via Nasal Cannula (L/min): 2 Local Anesthetic: Lidocaine 1% Amount of Anesthetic used (mls): 1 Size (Gauge): 20 Length (inches): 5 Technique Used: sterile prep, guide wire technique, direct puncture technique Post-Procedure: line taped into place, dry sterile dressing placed Patient tolerated procedure: well, no complications Complications: none Site: Radial L (attempt x 1 easy) - Central Line Placement Right IJ Consent obtained: written consent Time out performed: Yes Patient placed on monitor/pulse ox: Yes prep: mask, gown, gloves Central line prep: Chlorhexidine scrub Ultrasound used for placement: Yes Technique: Seldinger Lumen Inserted: Introducer Post procedure: sutured in place, good blood return, all ports aspirated, flushed, capped, sterile dressing applied Patient tolerated procedure: well, no complications Complications: none (attempt x 1 for introducer. [place] passes easily and wedges approx 56cm, no arrythmias with placement.)
[2016-09-29] MEDS ORDERED: amLODIPine 5 MG TABLET PO SCH (09:00)
[2016-09-29] MEDS ORDERED: niCARdipine 40 MG/200 ML MLS IVC ONE (10:40)
[2016-09-29] MEDS ORDERED: Protamine Sulfate 50 MG/5 ML VIAL IVP ONE (10:44)
[2016-09-29] MEDS ORDERED: *HR* Morphine 2 MG/ML SYRINGE IVP PRN (11:22)
[2016-09-29] MEDS ORDERED: Naloxone 0.4 MG/ML INJ IVP PRN (11:22)
[2016-09-29] MEDS ORDERED: Acetaminophen 650 MG RECTAL SUPP RC PRN (11:22)
[2016-09-29] MEDS ORDERED: Insulin Regular, Human 100 UNIT/ML IV PRN (11:22)
[2016-09-29] MEDS ORDERED: Calcium Chloride 1,000 MG in 0.9 % Sodium Chloride 100 ML IVPB PRN (11:22)
[2016-09-29] MEDS ORDERED: *HR* Dextrose 50 % in Water (Syg) 50 ML SYRINGE IVP PRN (11:22)
[2016-09-29] MEDS ORDERED: Magnesium Sulfate 2 GM in D5% in Water 100 ML IVPB PRN (11:22)
[2016-09-29] MEDS ORDERED: 0.9 % Sodium Chloride w KCl 20 MEQ/1,000 ML MLS IVC SCH (11:30)
--- NOTE | 2016-09-29 11:43 | Operative Note ---
Date of procedure: 09/29/16 Pre-op diagnosis: CAD with unstable angina. Post-op diagnosis: same Procedure: 1. CABG 3 (NOLEN to LAD, SVG to D1, SVG to PDA). 2. Endoscopic vein harvesting, greater saphenous vein from left lower extremity. Implants: None. Complications: None. Anesthesia: ALLEN Surgeon: Lorne Smith Surgical Instrument Mechanic: Kwesi Silvestre Specimen: None. Condition: stable Disposition: ICU Procedure in Detail: INDICATIONS FOR OPERATION: The patient is an 81-year-old hypertensive man with hypercholesterolemia who has experienced progressive exertional nonradiating substernal chest pain. He mentioned these symptoms to his primary care physician who referred the patient for cardiac workup. The cardiac catheterization revealed an LVEF 50% with normal LV size and function. Subsequent cardiac catheterization revealed severe 3 vessel CAD. In particular patient has a 90% proximal LAD lesion, a 90% proximal D1 lesion, an 80% mid LCx lesion, and a 99% proximal PDA lesion. He was recommended for CABG. FINDINGS AT OPERATION: The aorta was of normal caliber and slightly thickened. No obvious calcification was appreciated. The coronary arteries measure approximately 2-3 mm in diameter and had mild distal disease, except the LCx which was small and not bypassable. The greater saphenous vein was harvested endoscopically from the left lower extremity from the knee to the groin and was of good quality. The total bypass time was 73 minutes, cross-clamp time 39 minutes, intentional hypothermia 35.3C. DESCRIPTION OF OPERATION: After obtaining informed option for the patient, he was taken to the operating room where satisfactory general endotracheal anesthetic was induced. Appropriate monitoring lines were placed, the patient's chest, and abdomen, and lower extremity were prepped and draped in a sterile fashion. The greater saphenous vein was harvested endoscopically from the left lower extremity from the knee to the groin. The vein was removed, distended, and found to be of good quality. The subcutaneous tissue and skin edges were reapproximated using running Vicryl sutures. Simultaneously a standard median sternotomy incision was made and the sternum divided. The LAD was taken out from its bed and side branches divided between hemoclips. The sternum was and the pericardium opened and reflected laterally. The patient was prepared for cannulation by placing pursestring sutures in the distal ascending aorta, mid-ascending aorta, right atrial appendage. The patient was heparinized when he has to was created and 200 seconds, the distal ascending aorta was cannulated and a dual stage venous cannula was placed to the right atrial appendage and into the inferior vena cava. A stab-in antegrade metabolic and was placed in the mid ascending aorta. The patient was placed on bypass and the temperature allowed to drift to 35.3 C. The distal targets were identified and the aorta was crossclamped. The patient received 700 mL of cold antegrade crystalloid cardioplegia through the aortic root and the patient's heart obtain rapid diastolic arrest. The PDA was opened with the blade and the vein was anastomosed in an end-to- side fashion using running 7-0 Prolene suture. The anastomosis found to be hemostatic. The LCx and its branches were examined; however, no vessels of adequate caliber for bypass were identified. The D1 branch was opened. Blade and the vein was anastomosed in an end-to-side fashion using running 7-0 Prolene suture. The anastomosis found to be hemostatic and the patient received a final dose of cold antegrade crystalloid cardioplegia through the aortic root. The LAD was opened with a [place] blade and the NOLEN was anastomosed to the LAD in an end-to-side fashion using a running 7-0 Prolene suture. The anastomosis found to be hemostatic and the mammary pedicle was tacked to the epicardium using interrupted 5-0 silk suture. Rewarming was begun during this anastomosis. The aortic cross-clamp was released and the heart distended. The veins were measured and cut at appropriate lengths. A partial occluding clamp was placed across the mid ascending aorta and the antegrade cardioplegia cannula was removed. An additional aortotomy site was made 11 blade and both sites were enlarged with a 4 mm punch. The veins were anastomosed in an end-to-side fashion to the artery using a running 5-0 Prolene suture. The vein grafts were occluded with a bulldog clamp and de-aired with 25-gauge needle prior to removing the partial occluding clamp. The proximal distal anastomoses were found to be hemostatic and the proximal anastomoses were marked with radiopaque loops. Two right ventricular temporary epicardial placing these were placed, and 3 chest tubes were placed, 2 in the mediastinum and one into the left pleural space. During rewarming the patient's heart regained normal sinus rhythm spontaneously. In the patient's systemic temperature reached 36C he was ventilated and received volume. He was weaned from bypass required no inotropic support. Protamine was administered and the aortic and venous cannula were removed. The pursestring sutures were secured and the venous cannulation site was reinforced with a 4-0 Prolene suture. The pericardium was was approximated the midline using interrupted 0 silk suture and the sternum was reapproximated using double wires. The pectoralis major fascia, rectus abdominis fascia, subcutaneous tissue , and skin edges were reapproximated using running Vicryl sutures. A negative pressure sterile dressing was applied to the sternotomy incision. The patient was transferred to the ICU in satisfactory postoperative condition. There were no intraoperative complications, and the instrument, needle, and sponge count were correct at end of operation. - Open Heart Detail DONYA (Internal Mammary Artery) Usage: Yes Cardiopulmonary Bypass Time (mins): 73 Aortic Cross Clamp Time (mins): 39 Intentional Hypothermia Temperature (C.): 35.3
[2016-09-29] MEDS: Nitroglycerin 25 MG/250 ML INFUS..BTL IVC SCH ×2 (11:45→18:01)
[2016-09-29] MEDS: niCARdipine 40 MG/200 ML MLS IVC SCH ×3 (11:48→20:59)
[2016-09-29 11:59] LABS: ABG HCO3 30.6 mEQ/L (21-27); ABG Oxygen Saturation 97 % (95-98); ABG PCO2 44 mmHg (35-45); ABG PH 7.45 pH Units (7.32-7.45); ABG PO2 92 mmHg (85-104); Basophils % 0.2 %; Blood Gas FiO2 40 %; Blood Gas PEEP 5 cm H2O; Blood Gas Respiration Rate 10; Blood Gas VT 600 cc; Eosinophils # 0.3 K/mcL (0.0-0.6); Eosinophils % 2.9 %; Hematocrit 31.8 % (37.5-50.1); Hemoglobin 10.7 g/dL (12.9-16.9); Immature Granulocytes % 0.4 % (0-4); Lymphocytes # 1.3 K/mcL (0.6-4.6); Lymphocytes % 11.2 %; Mean Corpuscular HGB Conc 33.6 g/dL (31.6-35.5); Mean Corpuscular Hemoglobin 31.3 pg (28.0-33.3); Monocytes # 0.3 K/mcL (0.0-1.3); Monocytes % 2.6 %; Neutrophils # 9.6 K/mcL (1.6-8.9); Platelet Count 105 K/mcL (140-400); Red Blood Count 3.42 M/mcL (4.19-5.50); Red Cell Distribution Width 12.4 % (11.5-14.5); Segmented Neutrophils % 82.7 %
[2016-09-29 12:04] LABS: INR 1.7; Prothrombin Time 18.3 Seconds (9.4-12.1)
[2016-09-29 12:06] LABS: Activated Partial Thrombo Time 27.5 Seconds (26.0-36.0)
[2016-09-29 12:10] LABS: BUN/Creatinine Ratio 16 (6-26); Blood Urea Nitrogen 12 mg/dL (8-26); Carbon Dioxide 26 mEq/L (19-29); Chloride 107 mEq/L (98-109); Glucose 115 mg/dL (70-99); Magnesium 2.5 mg/dL (1.6-2.6); Osmolality,Calculated 291 (280-300); Potassium 2.9 mEq/L (3.5-4.5); Sodium 140 mEq/L (136-145); eGFR For African Americans > 60 (> 60); eGFR For Non-African Americans > 60 (> 60)
[2016-09-29] MEDS: Albumin Human 5% 50.0 GM/1,000 ML VIAL ONE (12:30)
[2016-09-29] MEDS: Potassium Chloride 40 MEQ/200 ML BAG IVPB PRN ×2 (12:57→14:01)
[2016-09-29] MEDS: Pantoprazole 40 MG VIAL IVP SCH (12:58)
[2016-09-29] MEDS: Metoclopramide 10 MG/2 ML VIAL IVP SCH ×3 (12:58→23:07)
[2016-09-29] MEDS: Isosorbide MONOnitrate (24 HR) 30 MG TAB.ER.24H PO SCH (13:00)
[2016-09-29] MEDS: predniSONE 5 MG TABLET PO SCH (13:00)
[2016-09-29] MEDS: Cholecalciferol (D-3) 1,000 UNIT TABLET PO SCH (13:00)
[2016-09-29] MEDS: Loratadine 10 MG TABLET PO SCH (13:00)
[2016-09-29] MEDS: Multivit/Ca/Min/Fe/FA 1 TAB TABLET PO SCH (13:00)
[2016-09-29] MEDS: Insulin Human Regular 100 UNIT in 0.9 % Sodium Chloride 100 ML IVC SCH (13:10)
[2016-09-29 13:36] LABS: ABG Base Excess 1.9 mEq/L (-2.0 to 3.0); ABG HCO3 28.2 mEQ/L (21-27); ABG PCO2 50 mmHg (35-45); ABG PH 7.36 pH Units (7.32-7.45); ABG PO2 375 mmHg (85-104); ABG TCO2 29.7 mEq/L (20-26)
[2016-09-29 13:37] LABS: ABG Glucose 77 mg/dL (60-95); ABG Hematocrit 42 % (35-51); ABG Ionized Calcium 1.06 mmol/L (1.15-1.35); ABG Oxygen Saturation 100 % (95-98)
[2016-09-29 13:38] LABS: ABG PCO2 34 mmHg (35-45); ABG PH 7.39 pH Units (7.32-7.45)
[2016-09-29 13:39] LABS: ABG Base Excess -3.9 mEq/L (-2.0 to 3.0); ABG HCO3 20.6 mEQ/L (21-27); ABG Hematocrit 27 % (35-51); ABG Oxygen Saturation 98 % (95-98); ABG PO2 98 mmHg (85-104); ABG TCO2 21.6 mEq/L (20-26)
[2016-09-29 13:40] LABS: ABG Glucose 142 mg/dL (60-95); ABG Ionized Calcium 0.71 mmol/L (1.15-1.35)
[2016-09-29 13:42] LABS: ABG Base Excess 4.4 mEq/L (-2.0 to 3.0); ABG HCO3 28.4 mEQ/L (21-27); ABG PCO2 39 mmHg (35-45); ABG PH 7.47 pH Units (7.32-7.45); ABG PO2 552 mmHg (85-104); ABG TCO2 29.6 mEq/L (20-26)
[2016-09-29 13:43] LABS: ABG Glucose 199 mg/dL (60-95); ABG Hematocrit 25 % (35-51); ABG Ionized Calcium 0.97 mmol/L (1.15-1.35); ABG Oxygen Saturation 100 % (95-98)
[2016-09-29 13:45] LABS: ABG Base Excess 4.9 mEq/L (-2.0 to 3.0); ABG Glucose 184 mg/dL (60-95); ABG HCO3 29.2 mEQ/L (21-27); ABG Hematocrit 24 % (35-51); ABG Ionized Calcium 0.96 mmol/L (1.15-1.35); ABG Oxygen Saturation 100 % (95-98); ABG PCO2 41 mmHg (35-45); ABG PH 7.46 pH Units (7.32-7.45); ABG PO2 477 mmHg (85-104); ABG TCO2 30.5 mEq/L (20-26)
[2016-09-29 13:47] LABS: ABG HCO3 23.5 mEQ/L (21-27); ABG Hematocrit 22 % (35-51); ABG PCO2 37 mmHg (35-45); ABG PH 7.41 pH Units (7.32-7.45); ABG PO2 110 mmHg (85-104); ABG TCO2 24.6 mEq/L (20-26)
[2016-09-29 13:48] LABS: ABG Glucose 142 mg/dL (60-95); ABG Ionized Calcium 1.23 mmol/L (1.15-1.35); ABG Oxygen Saturation 98 % (95-98)
[2016-09-29] MEDS ORDERED: *HR* Magnesium Sulfate 2 GM/50 ML PIGGYBACK IVPB ONE (14:14)
[2016-09-29] MEDS ORDERED: Sodium Bicarbonate 50 MEQ/50 ML VIAL IVC ONE (14:14)
[2016-09-29] MEDS ORDERED: *HR* Heparin 10,000 UNIT/10 ML VIAL IV ONE (14:14)
[2016-09-29] MEDS ORDERED: *HR* Phenylephrine 10 MG/ML VIAL IVC ONE (14:14)
[2016-09-29] MEDS ORDERED: Mannitol 25% vial 12.5 GM/50 ML VIAL IVP ONE (14:14)
[2016-09-29] MEDS ORDERED: Lidocaine 2% Syringe 100 MG/5 ML IV ONE (14:14)
[2016-09-29] MEDS ORDERED: Albumin Human 25% 25 GM/100 ML IV.SOLN IV ONE (14:14)
[2016-09-29] MEDS: *HR* Morphine 2 MG/ML SYRINGE IVP PRN ×3 (15:27→19:57)
[2016-09-29 15:44] LABS: ABG Base Excess -0.6 mEq/L (-2.0 to 3.0); ABG HCO3 22.9 mEQ/L (21-27); ABG Oxygen Saturation 99 % (95-98); ABG PCO2 33 mmHg (35-45); ABG PH 7.45 pH Units (7.32-7.45); ABG PO2 112 mmHg (85-104); ABG TCO2 23.9 mEq/L (20-26)
[2016-09-29 15:45] LABS: Blood Gas FiO2 100 %
[2016-09-29] MEDS: *HR* OxyCODONE/APAP 5/325 TABLET PO PRN ×2 (17:13→22:21)
[2016-09-29] MEDS: predniSONE 1 MG TABLET PO SCH (18:04)
[2016-09-29] MEDS: ceFAZolin 2,000 MG in D5% in Water 100 ML IVPB SCH (18:07)
--- NOTE | 2016-09-29 18:07 | Electrocardiograph Report ---
[address] [address] Test Date: 2016-09-29 Pat Name: Wade Bello Department: 109 Room: 02 Gender: M Roller Hand: JESSICA : 1935 Requested By: Lorne Smith Order Number: [id number] Reading MD: Samuel Smith MD Measurements Intervals [employer] Rate: 80 P: 44 IA: 212 QRS: -3 QRSD: 105 T: 145 QT: 402 QTc: 438 Interpretive Statements SINUS RHYTHM WITH FIRST DEGREE AV BLOCK LEFT VENTRICULAR HYPERTROPHY AND ST-T CHANGE Electronically Signed On 09-29-2016 18:05:46 EDT by Samuel Smith MD
[2016-09-29] MEDS: Norepinephrine 4 MG in D5% in Water 250 ML IVC SCH (19:25)
[2016-09-29 19:44] LABS: ABG Base Excess 1.6 mEq/L (-2.0 to 3.0); ABG HCO3 25.8 mEQ/L (21-27); ABG Oxygen Saturation 100 % (95-98); ABG PCO2 38 mmHg (35-45); ABG PH 7.44 pH Units (7.32-7.45); ABG PO2 157 mmHg (85-104); Blood Gas FiO2 80 %
[2016-09-29 22:24] LABS: ABG HCO3 26.5 mEQ/L (21-27); ABG Oxygen Saturation 87 % (95-98); ABG PCO2 40 mmHg (35-45); ABG PH 7.43 pH Units (7.32-7.45); ABG PO2 52 mmHg (85-104); ABG TCO2 27.7 mEq/L (20-26)
[2016-09-29 22:25] LABS: Blood Gas FiO2 40 %
[2016-09-29] MEDS ORDERED: Furosemide 20 MG/2 ML VIAL IVP ONE (23:45)
[2016-09-30] MEDS: ceFAZolin 2,000 MG in D5% in Water 100 ML IVPB SCH (02:01)
[2016-09-30 02:45] LABS: ABG Base Excess 1.4 mEq/L (-2.0 to 3.0); ABG HCO3 24.6 mEQ/L (21-27); ABG Oxygen Saturation 96 % (95-98); ABG PCO2 33 mmHg (35-45); ABG PH 7.48 pH Units (7.32-7.45); ABG PO2 78 mmHg (85-104); ABG TCO2 25.6 mEq/L (20-26); Blood Gas FiO2 35 %
[2016-09-30 03:03] LABS: Basophils % 0.4 %; Eosinophils # 0.3 K/mcL (0.0-0.6); Eosinophils % 3.1 %; Hematocrit 30.4 % (37.5-50.1); Hemoglobin 10.1 g/dL (12.9-16.9); Immature Granulocytes % 0.6 % (0-4); Lymphocytes # 1.6 K/mcL (0.6-4.6); Lymphocytes % 15.2 %; Mean Corpuscular HGB Conc 33.2 g/dL (31.6-35.5); Mean Corpuscular Hemoglobin 31.5 pg (28.0-33.3); Mean Corpuscular Volume 94.7 fL (83.0-100.0); Mean Platelet Volume 10.2 fL (9.4-12.4); Monocytes # 1.1 K/mcL (0.0-1.3); Monocytes % 10.1 %; Neutrophils # 7.4 K/mcL (1.6-8.9); Platelet Count 163 K/mcL (140-400); Red Cell Distribution Width 13.1 % (11.5-14.5); Segmented Neutrophils % 70.6 %
[2016-09-30 03:06] LABS: INR 1.3
[2016-09-30 03:08] LABS: Activated Partial Thrombo Time 24.9 Seconds (26.0-36.0)
[2016-09-30 03:09] LABS: Red Blood Count 3.21 M/mcL (4.19-5.50)
[2016-09-30 03:13] LABS: Prothrombin Time 14.5 Seconds (9.4-12.1)
[2016-09-30 03:21] LABS: BUN/Creatinine Ratio 12 (6-26); Blood Urea Nitrogen 16 mg/dL (8-26); Calcium 8.2 mg/dL (8.6-10.8); Carbon Dioxide 22 mEq/L (19-29); Chloride 110 mEq/L (98-109); Glucose 133 mg/dL (70-99); Magnesium 2.3 mg/dL (1.6-2.6); Osmolality,Calculated 293 (280-300); Potassium 4.3 mEq/L (3.5-4.5); Sodium 140 mEq/L (136-145); eGFR For African Americans > 60 (> 60); eGFR For Non-African Americans 53 (> 60)
[2016-09-30] MEDS: niCARdipine 40 MG/200 ML MLS IVC SCH ×2 (03:51→19:44)
[2016-09-30] MEDS: Nitroglycerin 25 MG/250 ML INFUS..BTL IVC SCH ×3 (03:52→19:48)
[2016-09-30] MEDS: *HR* OxyCODONE/APAP 5/325 TABLET PO PRN ×3 (04:02→18:07)
[2016-09-30] MEDS: Metoclopramide 10 MG/2 ML VIAL IVP SCH ×4 (05:00→23:16)
[2016-09-30 06:02] LABS: ABG Base Excess 1.4 mEq/L (-2.0 to 3.0); ABG HCO3 24.4 mEQ/L (21-27); ABG Oxygen Saturation 94 % (95-98); ABG PCO2 32 mmHg (35-45); ABG PH 7.49 pH Units (7.32-7.45); ABG PO2 63 mmHg (85-104); ABG TCO2 25.4 mEq/L (20-26); Blood Gas FiO2 35 %
[2016-09-30] MEDS: *HR* Morphine 2 MG/ML SYRINGE IVP PRN ×3 (06:10→16:13)
[2016-09-30] MEDS: Albumin Human 5% 50.0 GM/1,000 ML VIAL ONE (07:47)
--- NOTE | 2016-09-30 08:08 | Pulmonology Consult Note ---
<Shaista Snell - Last Filed: 09/30/16 13:37> Date of Encounter: 09/30/16 Time of Encounter: 08:08 Assessment and Plan (1) Coronary artery disease Current Visit: Yes Status: Acute 81 y/o male POD#1 CABGx3 currently on mechanical ventilation. Pre-surgical LVEF 55-60%.CXR shows small left pleural effusion, suspect that this is secondary to fluid overload. Will stop IVF. Recommend diuresis prior to extubation today with extubation to CPAP. EXTRAS CASTING DIRECTOR: Patient alert, able to follow commands and move all extremities. Pulmonary: Intubated, CTAB, CXR shows pleural effusion on the left, suspect secondary to fluid overload. Patient had a small pneumo yesterday that resolved. Will diurese patient with lasix, plan to extubate to CPAP after. Cardiovascular: POD#1 CABGx3. Patient in Afib on cardizem gtt, nitro gtt. [place] kirsten removed this morning. [address]. Will stop D5 fluids, diurese GI: BS hypoactive, no BM since surgery Renal: LEANNA today postop. UOP adequate (986cc 6/, 655cc today). Will continue to monitor ID: No leukocytosis or signs of infection Heme/Onc: H/H stable, continue to monitor. Endocrine: Glucose stable, insulin per protocol. GI Prophylaxis: Protonix DVT Prophylaxis per protocol Nutrition: NPO Lines: all lines checked and no evidence of infections Skin: skin care to prevent pressure ulcers per nursing routine care. CODE STATUS: FULL CODE Qualifiers: Coronary Disease-Associated Artery/Lesion type: [place] artery [place] vs. transplanted heart: [place] heart Associated angina: with stable angina Qualified Code(s): I25.118 - Atherosclerotic heart disease of [place] coronary artery with other forms of angina pectoris (2) Hyperlipidemia Current Visit: Yes Status: Acute Qualifiers: Hyperlipidemia type: unspecified Qualified Code(s): E78.5 - Hyperlipidemia , unspecified (3) HTN (hypertension) Current Visit: Yes Status: Chronic Qualifiers: Hypertension type: essential hypertension Qualified Code(s): I10 - Essential (primary) hypertension History of Present Illness Consult date: 09/30/16 Requesting physician: Lorne Smith Reason for consult: hypoxemia Chief complaint: Chest pain History of present illness: Mr. Bello is an 81 y/o male with a PMH of episodic angina and significant valvular disease, HLD, HTN who is POD#[address] Smith. The patient underwent LHC 09/23/16 which revealed left main 30%, proximal LAD 70%, mid LAD 95 %, mid circumflex 70%, and right PDA 99% stenosis with collaterals. He had been on plavix and was hospitalized for 5 days while the plavix was stopped. He underwent CABG 09/29/16 successfully. The patient has developed post op afib and is currently on a cardizem gtt. Pulmonology was consulted for vent/oxygenation management post op. The patient has a remote history of smoking, but quit 18 years ago. 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 No prior diagnosis of COPD or asthma. Past Med Surg Social Fam HX - Past Medical History Medical history: coronary artery disease, GERD, hyperlipidemia, hypertension Psychiatric history: no psych history - Social History Smoking Status: Former smoker Packs per day: QUIT 18 YEARS AGO Smokeless Tobacco Status: No Alcohol use: rarely Drug use: none Medications and Allergies Aspirin [Lo-Dose Aspirin EC] 81 mg PO DAILY 09/23/16 [History] Cholecalciferol (Vitamin D3) [Vitamin D3] 2,000 unit PO DAILY 09/23/16 [History] Clopidogrel [Plavix] 75 mg PO DAILY 09/23/16 [History] Isosorbide MONOnitrate (24 HR) [Imdur] 60 mg PO DAILY 09/23/16 [History] Loratadine [Allergy Relief] 10 mg PO DAILY 09/23/16 [History] Metoprolol XL (24 HR) Succ [Toprol Xl] 50 mg PO DAILY 09/23/16 [History] Multivit-Min/FA/Lycopen/Lutein [Centrum Silver Tablet] 1 each PO DAILY 09/23/16 [History] Nitroglycerin [Nitrostat] 0.4 mg SL Q5M PRN 09/23/16 [History] Omeprazole 20 mg PO DAILY 09/23/16 [History] Simvastatin [Zocor] 40 mg PO HS 09/23/16 [History] Tramadol HCl [Ultram] 50 mg PO BID PRN 09/23/16 [History] predniSONE [PredniSONE] 5 mg PO BIDWM 09/23/16 [History] Allergies No Known Allergies Allergy (Verified 09/23/16 08:40) ROS unobtainable: due to endotracheal tube Physical Examination Vital Signs: Vital Signs, Last 4 Hours Temp Pulse Resp BP Pulse Ox 09/30/16 07:45 20 137/57 94 09/30/16 07:00 99.3 F 105 19 119/52 93 09/30/16 06:00 99.2 F 90 18 118/47 93 09/30/16 05:58 19 92 09/30/16 05:00 99.2 F 93 18 120/44 91 09/30/16 04:09 99.2 F 92 18 117/45 88 General appearance: no acute distress, alert Eyes: nonicteric ENT: oropharynx moist Neck: supple, no lymphadenopathy, no JVD Effort: normal Inspection: other (sternotomy with dressing in place, [address]) Auscultation: bilateral: clear Cardiovascular: irregular rhythm Gastrointestinal: hypoactive bowel sounds, soft, non-tender, non-distended Integumentary: normal Extremities: no cyanosis, no edema, pink and warm, pulses normal Musculoskeletal: no deformities non-focal exam, pupils equal and round, motor strength normal and symmetric, other (patient follows commands, moves all 4 extremities) mood appropriate, affect normal Ventilator Settings Ventilator Settings: Ventilator Settings, Last 8 Hours Ventilator Mode A/C Ventilator Mode A/C Ventilator Mode A/C Ventilator Mode A/C Ventilator Mode A/C Ventilator Mode A/C Ventilator Mode A/C Ventilator Mode A/C Ventilator Mode A/C Ventilator Mode A/C Ventilator Mode A/C Ventilator Mode A/C Ventilator Tidal Volume 600 Setting Ventilator Tidal Volume 600 Setting Ventilator Tidal Volume 600 Setting Ventilator Tidal Volume 600 Setting Ventilator Tidal Volume 600 Setting Ventilator Tidal Volume 600 Setting Ventilator Tidal Volume 600 Setting Ventilator Tidal Volume 600 Setting Ventilator Tidal Volume 600 Setting Ventilator Tidal Volume 600 Setting Ventilator Tidal Volume 600 Setting Ventilator Tidal Volume 600 Setting Ventilator Respiratory Rate 10 Setting Ventilator Respiratory Rate 10 Setting Ventilator Respiratory Rate 10 Setting Ventilator Respiratory Rate 10 Setting Ventilator Respiratory Rate 10 Setting Ventilator Respiratory Rate 10 Setting Ventilator Respiratory Rate 10 Setting Ventilator Respiratory Rate 10 Setting Ventilator Respiratory Rate 10 Setting Ventilator Respiratory Rate 10 Setting Ventilator Respiratory Rate 10 Setting Ventilator Respiratory Rate 10 Setting Actual Respiratory Rate 20 Actual Respiratory Rate 19 Actual Respiratory Rate 19 Actual Respiratory Rate 17 Actual Respiratory Rate 19 Actual Respiratory Rate 19 Actual Respiratory Rate 19 Actual Respiratory Rate 11 Actual Respiratory Rate 11 Actual Respiratory Rate 18 Positive End Expiratory 5 Pressure Positive End Expiratory 5 Pressure Positive End Expiratory 5 Pressure Positive End Expiratory 5 Pressure Positive End Expiratory 5 Pressure Positive End Expiratory 5 Pressure Positive End Expiratory 5 Pressure Positive End Expiratory 5 Pressure Positive End Expiratory 5 Pressure Positive End Expiratory 5 Pressure Positive End Expiratory 5 Pressure Positive End Expiratory 5 Pressure Peak Inspiratory Airway 29 Pressure Peak Inspiratory Airway 30 Pressure Peak Inspiratory Airway 30 Pressure Peak Inspiratory Airway 28 Pressure Peak Inspiratory Airway 30 Pressure Peak Inspiratory Airway 30 Pressure Peak Inspiratory Airway 30 Pressure Peak Inspiratory Airway 25 Pressure Peak Inspiratory Airway 25 Pressure Peak Inspiratory Airway 25 Pressure Results - Laboratory Findings CBC and BMP: 09/30/16 02:55 09/30/16 02:55 ABG ABG pH 7.49 pH Units (7.32-7.45) H 09/30/16 05:56 ABG pCO2 32 mmHg (35-45) L 09/30/16 05:56 ABG pO2 63 mmHg (85-104) L 09/30/16 05:56 ABG O2 Saturation 94 % (95-98) L 09/30/16 05:56 PT/INR, D-dimer PT 14.5 Seconds (9.4-12.1) H 09/30/16 02:55 Abnormal lab findings: Abnormal lab results RBC 3.21 M/mcL (4.19-5.50) L 09/30/16 02:55 Hgb 10.1 g/dL (12.9-16.9) L 09/30/16 02:55 Hct 30.4 % (37.5-50.1) L 09/30/16 02:55 PT 14.5 Seconds (9.4-12.1) H 09/30/16 02:55 APTT 24.9 Seconds (26.0-36.0) L 09/30/16 02:55 ABG pH 7.49 pH Units (7.32-7.45) H 09/30/16 05:56 ABG pCO2 32 mmHg (35-45) L 09/30/16 05:56 ABG pO2 63 mmHg (85-104) L 09/30/16 05:56 ABG O2 Saturation 94 % (95-98) L 09/30/16 05:56 ABG Hematocrit 22 % (35-51) L 09/29/16 10:14 Potassium 2.7 mEq/L (3.5-5.3) L 09/29/16 10:14 Glucose 142 mg/dL (60-95) H 09/29/16 10:14 Chloride 110 mEq/L (98-109) H 09/30/16 02:55 Creatinine 1.30 mg/dL (0.72-1.25) H D 09/30/16 02:55 Est GFR (Non-Af Amer) 53 (> 60) L 09/30/16 02:55 Glucose 133 mg/dL (70-99) H 09/30/16 02:55 POC Glucose 138 (58-89) H 09/30/16 00:42 Calcium 8.2 mg/dL (8.6-10.8) L 09/30/16 02:55 - Diagnostic Findings Chest x-ray: report reviewed, image reviewed Additional studies: Chest X-Ray 09/30/16 04:00 IMPRESSION: Stable lines and tubes. Stable mild central pulmonary edema and left pleural effusion. No pneumothorax. D/ / 09/30/2016 07:30:38 Wade Siddiqui MD / akash Interpreting Provider: Wade Siddiqui MD - Clinical Findings Intake & Output: Intake & Output 09/29/16 09/30/16 09/30/16 23:59 07:59 15:59 Intake Total 461 / 461 350 / 350 Output Total 1719 / 1719 579 / 579 Balance -1258 / -1258 -229 / -229 Consult Discharge Plan - Plan Referrals: Kapil Lin MD [Primary Care Provider] - <Freddy Sheehan - Last Filed: 09/30/16 14:56> Date of Encounter: 09/30/16 All Systems: A 10-system review of systems was performed and is negative for pertinent findings except as documented above in the HPI. Physical Examination Vital Signs: Vital Signs, Last 4 Hours Temp Pulse Resp BP Pulse Ox 09/30/16 14:29 138/74 92 09/30/16 14:00 86 22 130/77 99 09/30/16 13:10 84 22 101/53 99 09/30/16 12:00 98.1 F 72 18 119/45 94 09/30/16 11:15 17 117/45 94 09/30/16 11:00 76 18 116/45 94 Ventilator Settings Ventilator Settings: Ventilator Settings, Last 8 Hours Ventilator Mode CPAP Ventilator Mode CPAP Ventilator Mode CPAP Ventilator Mode A/C Ventilator Mode A/C Ventilator Mode A/C Ventilator Mode A/C Ventilator Mode A/C Ventilator Mode A/C Ventilator Mode A/C Ventilator Mode A/C Ventilator Tidal Volume 600 Setting Ventilator Tidal Volume 600 Setting Ventilator Tidal Volume 600 Setting Ventilator Tidal Volume 600 Setting Ventilator Tidal Volume 600 Setting Ventilator Tidal Volume 600 Setting Ventilator Tidal Volume 600 Setting Ventilator Tidal Volume 600 Setting Ventilator Respiratory Rate 10 Setting Ventilator Respiratory Rate 10 Setting Ventilator Respiratory Rate 10 Setting Ventilator Respiratory Rate 10 Setting Ventilator Respiratory Rate 10 Setting Ventilator Respiratory Rate 10 Setting Ventilator Respiratory Rate 10 Setting Ventilator Respiratory Rate 10 Setting Actual Respiratory Rate 22 Actual Respiratory Rate 22 Actual Respiratory Rate 22 Actual Respiratory Rate 17 Actual Respiratory Rate 17 Actual Respiratory Rate 18 Actual Respiratory Rate 22 Actual Respiratory Rate 22 Actual Respiratory Rate 22 Actual Respiratory Rate 20 Actual Respiratory Rate 19 Positive End Expiratory 5 Pressure Positive End Expiratory 5 Pressure Positive End Expiratory 5 Pressure Positive End Expiratory 5 Pressure Positive End Expiratory 5 Pressure Positive End Expiratory 5 Pressure Positive End Expiratory 5 Pressure Positive End Expiratory 5 Pressure Positive End Expiratory 5 Pressure Positive End Expiratory 5 Pressure Positive End Expiratory 5 Pressure Peak Inspiratory Airway 16 Pressure Peak Inspiratory Airway 16 Pressure Peak Inspiratory Airway 16 Pressure Peak Inspiratory Airway 25 Pressure Peak Inspiratory Airway 25 Pressure Peak Inspiratory Airway 28 Pressure Peak Inspiratory Airway 28 Pressure Peak Inspiratory Airway 28 Pressure Peak Inspiratory Airway 28 Pressure Peak Inspiratory Airway 29 Pressure Peak Inspiratory Airway 30 Pressure Results - Laboratory Findings CBC and BMP: 09/30/16 02:55 09/30/16 02:55 ABG ABG pH 7.49 pH Units (7.32-7.45) H 09/30/16 05:56 ABG pCO2 32 mmHg (35-45) L 09/30/16 05:56 ABG pO2 63 mmHg (85-104) L 09/30/16 05:56 ABG O2 Saturation 94 % (95-98) L 09/30/16 05:56 PT/INR, D-dimer PT 14.5 Seconds (9.4-12.1) H 09/30/16 02:55 Abnormal lab findings: Abnormal lab results RBC 3.21 M/mcL (4.19-5.50) L 09/30/16 02:55 Hgb 10.1 g/dL (12.9-16.9) L 09/30/16 02:55 Hct 30.4 % (37.5-50.1) L 09/30/16 02:55 PT 14.5 Seconds (9.4-12.1) H 09/30/16 02:55 APTT 24.9 Seconds (26.0-36.0) L 09/30/16 02:55 ABG pH 7.49 pH Units (7.32-7.45) H 09/30/16 05:56 ABG pCO2 32 mmHg (35-45) L 09/30/16 05:56 ABG pO2 63 mmHg (85-104) L 09/30/16 05:56 ABG O2 Saturation 94 % (95-98) L 09/30/16 05:56 ABG Hematocrit 22 % (35-51) L 09/29/16 10:14 Mixed VBG pH 7.40 (7.34-7.36) H 09/30/16 08:22 Mixed VBG pCO2 43 mmHg (44-46) L 09/30/16 08:22 Mixed VBG pO2 64 mmHg (35-45) H 09/30/16 08:22 Mixed VBG Oxyhemoglobin 92.0 % (60-80) H 09/30/16 08:22 Potassium 2.7 mEq/L (3.5-5.3) L 09/29/16 10:14 Glucose 142 mg/dL (60-95) H 09/29/16 10:14 Chloride 110 mEq/L (98-109) H 09/30/16 02:55 Creatinine 1.30 mg/dL (0.72-1.25) H D 09/30/16 02:55 Est GFR (Non-Af Amer) 53 (> 60) L 09/30/16 02:55 Glucose 133 mg/dL (70-99) H 09/30/16 02:55 POC Glucose 138 (58-89) H 09/30/16 00:42 Calcium 8.2 mg/dL (8.6-10.8) L 09/30/16 02:55 - Clinical Findings Intake & Output: Intake & Output 09/29/16 09/30/16 09/30/16 23:59 07:59 15:59 Intake Total 461 / 461 350 / 350 1175 / 1175 Output Total 1719 / 1719 579 / 579 295 / 295 Balance -1258 / -1258 -229 / -229 880 / 880 - Attending Attestation I examined the patient and reviewed documentation. All pertinent radiology and laboratory data were reviewed. Patient was discussed in multidisciplinary Rounds and I agree with resident's documentation of the following additions. Neuro: All sedation held and patient alert and oriented. Cardiovascular: Status post 3 vessel bypass POD #1. Questionable PA catheter data obtained this morning with conflicting cardiac output data and mixed venous saturation data. Clinical exam would suggest the patient could benefit from preload reduction. Recommended increased diuresis with discontinuation of IV fluids prior to and after extubation. Pulmonary: Patient oxygenating and ventilating well. Recommend extubation to noninvasive positive pressure ventilation for several hours to assist in lung recruitment and reduction of preload. Nephro: Tolerating diuresis well. Recommend continued diuresis with goal net - 1.5 L over 24 hours. GI: Defer to primary team ID: No evidence of infection. Defer to primary team HO: Defer management to primary team Endocrine: Mild hyperglycemia. Defer to primary team Critical care time 40 minutes
--- NOTE | 2016-09-30 08:08 | Cardiothoracic Progress Note ---
Date of Encounter: 09/30/16 Time of Encounter: 08:06 - Assessment and plan (1) Coronary artery disease Current Visit: Yes Status: Acute The patient is recovering well from his CABG2. I have counsulted the laborer cook house to evaluate the patient and manage the ventilator. He developed postoperative atrial fibrillation and is currently on a Cardizem drip for rate control. He will remain in the ICU today to closely monitor his respiratory status and cardiac rhythm. The assessment and plan as outlined above was discussed with the patient and/or family members who expressed understanding and agreement. All questions were answered. Qualifiers: Coronary Disease-Associated Artery/Lesion type: [place] artery [place] vs. transplanted heart: [place] heart Associated angina: with stable angina Qualified Code(s): I25.118 - Atherosclerotic heart disease of [place] coronary artery with other forms of angina pectoris - Subjective Procedure(s) Performed: POD#1 S/P CABG3 Interval history: The patient remained hemodynamically stable overnight. His oxygen saturations decreased yesterday afternoon; however, have improved. He is awake and appropriate, though he remains intubated. He is in no distress. Vital Signs, Last 4 Hours Temp Pulse Resp BP Pulse Ox 09/30/16 07:45 20 137/57 94 09/30/16 07:00 99.3 F 105 19 119/52 93 09/30/16 06:00 99.2 F 90 18 118/47 93 09/30/16 05:58 19 92 09/30/16 05:00 99.2 F 93 18 120/44 91 09/30/16 04:09 99.2 F 92 18 117/45 88 Oxgyen Flow Rate Oxygen Flow Rate (LPM) 0 Clinical Data, last 8 Hours Output, Chest Tube Drainage 5 Amount [Mediastinal #2] Output, Chest Tube Drainage 5 Amount [Mediastinal #2] Output, Chest Tube Drainage 2 Amount [Mediastinal #2] Output, Chest Tube Drainage 2 Amount [Mediastinal #2] Output, Chest Tube Drainage 5 Amount [Mediastinal #2] Output, Chest Tube Drainage 5 Amount [Mediastinal #2] Output, Chest Tube Drainage 5 Amount [Mediastinal #1] Output, Chest Tube Drainage 30 Amount [Mediastinal #1] Output, Chest Tube Drainage 10 Amount [Mediastinal #1] Output, Chest Tube Drainage 5 Amount [Mediastinal #1] Output, Chest Tube Drainage 10 Amount [Mediastinal #1] Output, Chest Tube Drainage 5 Amount [Mediastinal #1] Weight 09/28/16 09/29/16 09/30/16 23:59 23:59 23:59 Weight 103.1 kg 102.5 kg - Physical Examination General: No Apparent Distress, Other (Intubated and appropriate.) Neck: No JVD, Normal carotid pulses Cardiac: Normal S1 and S2, No Murmur, Other (Irregular rate and rhythm (atrial fibrillation).) Incision: No signs of infection, Dry/intact dressing Sternum: Stable Chest tubes: Minimal drainage, Other (No air leak.) Lungs: Normal Breath Sounds, No Wheeze, Rales, Rhonchi Neuro: Alert and responsive, No focal deficits noted Vascular: Normal capillary refill Extremities: No Clubbing, No Cyanosis, No Edema - Labs 09/30/16 02:55 09/30/16 02:55 Lab Results, Last 24 hours 09/29/16 09/29/16 09/29/16 11:49 11:49 11:49 WBC 11.7 H Hgb 10.7 L D Hct 31.8 L Plt Count 105 L D INR 1.7 APTT 27.5 Sodium 140 Potassium 2.9 L Chloride 107 Carbon Dioxide 26 BUN 12 Creatinine 0.77 Glucose 115 H Calcium 8.0 L Magnesium 2.5 09/29/16 09/29/16 09/30/16 15:33 19:35 02:55 WBC 10.4 Hgb 10.1 L Hct 30.4 L Plt Count 163 D INR APTT Sodium Potassium 3.7 3.6 Chloride Carbon Dioxide BUN Creatinine Glucose Calcium Magnesium 09/30/16 09/30/16 02:55 02:55 WBC Hgb Hct Plt Count INR 1.3 APTT 24.9 L Sodium 140 Potassium 4.3 Chloride 110 H Carbon Dioxide 22 BUN 16 Creatinine 1.30 H D Glucose 133 H Calcium 8.2 L Magnesium 2.3 - Imaging Chest Xray: image reviewed (No pneumothorax. Increased pulmonary vascularity consistent with pulmonary edema. Left pleural effusion.) - VTE Documentation of Mechanical Device: Graduated compression elastic hosiery Consult Discharge Plan - Plan Referrals: Kapil Lin MD [Primary Care Provider] -
[2016-09-30 08:39] LABS: Mixed Venous Blood pCO2 43 mmHg (44-46); Mixed Venous Blood pO2 64 mmHg (35-45)
[2016-09-30] MEDS: Cholecalciferol (D-3) 1,000 UNIT TABLET PO SCH (09:00)
--- NOTE | 2016-09-30 09:05 | Anesthesia Evaluation Post Op ---
Date of Encounter: 09/30/16 Time of Encounter: 08:35 - Vital Signs Vital Signs: Selected Entries 09/30/16 07:45 09/30/16 08:00 Pulse Rate 110 Respiratory Rate 20 Blood Pressure 137/57 O2 Sat by Pulse Oximetry 96 Fraction of Inspired Oxygen 40 Oxygen Delivery Method Mechanical Ventilation - Lungs Lungs: Clear Ascult./Percussion (Still intubated) - Airway Airway: Non-obstructed - Cardiovascular Irregular Rate (a-fib) - Mental Status Mental Status: Alert & Oriented, Answers Appropriately - Pain Pain Scale: 3 Pain Scale used: Numeric (1 - 10) - Nausea Vomiting Nausea Vomiting: Not Present - Hydration Hydration: NPO, Amos catheter (Pulmonary consulting. No apparent anesthesia complicaitons)
[2016-09-30] MEDS: Pantoprazole 40 MG VIAL IVP SCH (09:09)
[2016-09-30] MEDS: predniSONE 5 MG TABLET PO SCH (09:09)
[2016-09-30] MEDS: Chlorhexidine Rinse 15 ML MOUTHWASH MM SCH ×2 (09:09→20:06)
[2016-09-30] MEDS: Furosemide 20 MG/2 ML VIAL IVP SCH ×2 (09:09→20:07)
[2016-09-30] MEDS: Isosorbide MONOnitrate (24 HR) 30 MG TAB.ER.24H PO SCH (09:10)
[2016-09-30] MEDS: Loratadine 10 MG TABLET PO SCH (09:10)
[2016-09-30] MEDS: Aspirin Enteric Coated 81 MG Tablet PO SCH (09:10)
[2016-09-30] MEDS: Multivit/Ca/Min/Fe/FA 1 TAB TABLET PO SCH (09:14)
[2016-09-30] MEDS ORDERED: Furosemide 40 MG/4 ML VIAL IVP ONE (13:39)
[2016-09-30] MEDS ORDERED: Dextrose Gel 15 GM PO PRN ×2 (14:51)
[2016-09-30] MEDS ORDERED: D5% in Water 1,000 ML IVC PRN (14:51)
[2016-09-30] MEDS ORDERED: *HR* Dextrose 50 % in Water (Syg) 50 ML SYRINGE IVP PRN (14:51)
[2016-09-30] MEDS: Insulin LISPRO 300 UNITS/3 ML VIAL SQ SCH ×2 (16:34→20:19)
[2016-09-30] MEDS ORDERED: Albuterol 2.5 MG/3 ML NEBULIZER IH PRN (16:43)
[2016-09-30] MEDS: predniSONE 1 MG TABLET PO SCH (18:04)
[2016-09-30] MEDS: Norepinephrine 4 MG in D5% in Water 250 ML IVC SCH (19:44)
[2016-09-30] MEDS: Insulin Human Regular 100 UNIT in 0.9 % Sodium Chloride 100 ML IVC SCH (19:44)
[2016-10-01 03:06] LABS: Basophils % 0.2 %; Eosinophils # 0.2 K/mcL (0.0-0.6); Eosinophils % 1.4 %; Hematocrit 29.2 % (37.5-50.1); Hemoglobin 9.6 g/dL (12.9-16.9); Immature Granulocytes % 0.4 % (0-4); Immature Platelets 4.2 % (1.1-6.1); Lymphocytes # 1.1 K/mcL (0.6-4.6); Lymphocytes % 10.3 %; Mean Corpuscular HGB Conc 32.9 g/dL (31.6-35.5); Mean Corpuscular Hemoglobin 31.4 pg (28.0-33.3); Mean Corpuscular Volume 95.4 fL (83.0-100.0); Mean Platelet Volume 9.7 fL (9.4-12.4); Monocytes # 0.9 K/mcL (0.0-1.3); Neutrophils # 8.8 K/mcL (1.6-8.9); Platelet Count 172 K/mcL (140-400); Red Blood Count 3.06 M/mcL (4.19-5.50); Red Cell Distribution Width 13.1 % (11.5-14.5); Segmented Neutrophils % 79.7 %
[2016-10-01] MEDS: niCARdipine 40 MG/200 ML MLS IVC SCH (03:06)
[2016-10-01] MEDS: Nitroglycerin 25 MG/250 ML INFUS..BTL IVC SCH (03:06)
[2016-10-01 03:18] LABS: BUN/Creatinine Ratio 21 (6-26); Blood Urea Nitrogen 21 mg/dL (8-26); Calcium 8.6 mg/dL (8.6-10.8); Carbon Dioxide 26 mEq/L (19-29); Chloride 104 mEq/L (98-109); Glucose 136 mg/dL (70-99); Osmolality,Calculated 287 (280-300); Potassium 3.9 mEq/L (3.5-4.5); Sodium 136 mEq/L (136-145); eGFR For African Americans > 60 (> 60); eGFR For Non-African Americans > 60 (> 60)
[2016-10-01] MEDS: Metoclopramide 10 MG/2 ML VIAL IVP SCH ×4 (05:06→23:55)
[2016-10-01] MEDS: *HR* Morphine 2 MG/ML SYRINGE IVP PRN (07:24)
--- NOTE | 2016-10-01 07:48 | Cardiothoracic Progress Note ---
Date of Encounter: 10/01/16 Time of Encounter: 07:46 - Assessment and plan (1) Coronary artery disease Current Visit: Yes Status: Acute I discontinued the chest tubes. I left the pacing wires. We will switch the patient to by mouth Cardizem. Qualifiers: Coronary Disease-Associated Artery/Lesion type: [place] artery [place] vs. transplanted heart: [place] heart Associated angina: with stable angina Qualified Code(s): I25.118 - Atherosclerotic heart disease of [place] coronary artery with other forms of angina pectoris - Subjective Interval history: The patient complains of mild postoperative pain. Vital Signs, Last 4 Hours Temp Pulse Resp BP Pulse Ox 10/01/16 07:33 98.4 F 10/01/16 06:12 81 16 92 10/01/16 05:00 83 20 131/81 90 10/01/16 04:03 16 90 10/01/16 04:00 83 20 135/64 93 Oxgyen Flow Rate Oxygen Flow Rate (LPM) 5 Clinical Data, last 8 Hours Output, Chest Tube Drainage 10 Amount [Mediastinal #2] Output, Chest Tube Drainage 2 Amount [Mediastinal #2] Output, Chest Tube Drainage 30 Amount [Mediastinal #1] Output, Chest Tube Drainage 5 Amount [Mediastinal #1] Weight 09/29/16 09/30/16 10/01/16 23:59 23:59 23:59 Weight 102.5 kg Lungs are clear to percussion and auscultation. Heart is in a normal sinus rhythm on a Cardizem drip. All incisions are healing well without signs of infection and the sternum is stable. Chest tube drainage is minimal and there is no air leak. - Labs 10/01/16 03:00 10/01/16 03:00 Lab Results, Last 24 hours 10/01/16 10/01/16 03:00 03:00 WBC 11.0 Hgb 9.6 L Hct 29.2 L Plt Count 172 Sodium 136 Potassium 3.9 Chloride 104 Carbon Dioxide 26 BUN 21 Creatinine 1.00 Glucose 136 H Calcium 8.6 - VTE Documentation of Mechanical Device: Graduated compression elastic hosiery Consult Discharge Plan - Plan Referrals: Kapil Lin MD [Primary Care Provider] -
[2016-10-01] MEDS: Aspirin Enteric Coated 81 MG Tablet PO SCH (08:56)
[2016-10-01] MEDS: Multivit/Ca/Min/Fe/FA 1 TAB TABLET PO SCH (08:56)
[2016-10-01] MEDS: Pantoprazole 40 MG VIAL IVP SCH (08:56)
[2016-10-01] MEDS: Chlorhexidine Rinse 15 ML MOUTHWASH MM SCH ×2 (08:56→20:29)
[2016-10-01] MEDS: Loratadine 10 MG TABLET PO SCH (08:57)
[2016-10-01] MEDS: predniSONE 5 MG TABLET PO SCH (08:57)
[2016-10-01] MEDS: Cholecalciferol (D-3) 1,000 UNIT TABLET PO SCH (08:57)
[2016-10-01] MEDS: Furosemide 20 MG/2 ML VIAL IVP SCH ×2 (08:57→20:29)
[2016-10-01] MEDS: Isosorbide MONOnitrate (24 HR) 30 MG TAB.ER.24H PO SCH (08:57)
[2016-10-01] MEDS: Insulin LISPRO 300 UNITS/3 ML VIAL SQ SCH ×4 (08:58→20:30)
[2016-10-01] MEDS ORDERED: Diltiazem CD (24hr) 180 MG CAPSULE PO SCH (09:00)
--- NOTE | 2016-10-01 09:00 | Pulmonology Progress Note ---
<Shaista Snell - Last Filed: 10/01/16 10:45> Date of Encounter: 10/01/16 Time of Encounter: 08:58 Assessment and Plan (1) Coronary artery disease Current Visit: Yes Status: Acute 81 y/o male POD#2 CABGx3 currently on mechanical ventilation. Pre-surgical LVEF 55-60%.CXR shows small left pleural effusion that has improved from yesterday, suspect that this is secondary to fluid overload. Patient is stable, pulmonology/critical care will sign off at this point, please re-consult as needed. 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 Pulmonary: CTAB, CXR shows pleural effusion on the left that has improved overnight, suspect secondary to fluid overload. Patient has done well since extubation, tolerating 4L O2 NC. He is having pain in the posterior left shoulder and not taking deep inspirations or using his incentive spirometry well. Patient at risk for developing pna. Will attempt at pain control and work to improve IS today. Cardiovascular: POD#2 CABGx3. Patient converted to NSR overnight, will stop cardizem gtt today. GI: BS hypoactive, no BM or gas since surgery Renal: Post op LEANNA has resolved. UOP adequate ([id number]) ID: No leukocytosis but patient had a fever of 100.2 overnight. He is having pain in the posterior left shoulder and not taking deep inspirations or using his incentive spirometry well. Patient at risk for developing pna. Will attempt at pain control and work to improve IS today. Heme/Onc: H/H stable, continue to monitor. Endocrine: Glucose stable, insulin per protocol. GI Prophylaxis: Protonix DVT Prophylaxis per protocol Nutrition: Diabetic Diet Lines: all lines checked and no evidence of infections Skin: skin care to prevent pressure ulcers per nursing routine care. CODE STATUS: FULL CODE Qualifiers: Coronary Disease-Associated Artery/Lesion type: [place] artery [place] vs. transplanted heart: [place] heart Associated angina: with stable angina Qualified Code(s): I25.118 - Atherosclerotic heart disease of [place] coronary artery with other forms of angina pectoris (2) Hyperlipidemia Current Visit: Yes Status: Acute Qualifiers: Hyperlipidemia type: unspecified Qualified Code(s): E78.5 - Hyperlipidemia , unspecified (3) HTN (hypertension) Current Visit: Yes Status: Chronic Qualifiers: Hypertension type: essential hypertension Qualified Code(s): I10 - Essential (primary) hypertension Subjective Principal diagnosis: CAD, Pending CABG, S/p cath Interval history: Patient was seen and examined. He denies shortness of breath. He does state that she has posterior left shoulder pain with inspiration. Due to this pain he has not been doing well with his incentive spirometry. No accute events overnight and he denies any other complaints. Objective PUL Vital signs: Last Vital Signs Temp 98.4 F 10/01/16 07:33 Pulse 93 10/01/16 07:15 Resp 18 10/01/16 07:45 BP 155/76 10/01/16 07:15 Pulse Ox 89 10/01/16 07:45 General appearance: no acute distress, alert Eyes: nonicteric ENT: oropharynx moist Neck: supple, no lymphadenopathy, no JVD Effort: normal Auscultation: bilateral: clear Cardiovascular: regular rate and rhythm Gastrointestinal: hypoactive bowel sounds, soft, non-tender, non-distended Integumentary: normal Extremities: no cyanosis, no edema, pink and warm, pulses normal Musculoskeletal: no deformities Gait: normal posture normal mental status, non-focal exam, pupils equal and round, motor strength normal and symmetric mood appropriate, affect normal Results - Laboratory Findings CBC and BMP: 10/01/16 03:00 10/01/16 03:00 ABG ABG pH 7.49 pH Units (7.32-7.45) H 09/30/16 05:56 ABG pCO2 32 mmHg (35-45) L 09/30/16 05:56 ABG pO2 63 mmHg (85-104) L 09/30/16 05:56 ABG O2 Saturation 94 % (95-98) L 09/30/16 05:56 PT/INR, D-dimer PT 14.5 Seconds (9.4-12.1) H 09/30/16 02:55 Abnormal lab findings: Abnormal lab results RBC 3.06 M/mcL (4.19-5.50) L 10/01/16 03:00 Hgb 9.6 g/dL (12.9-16.9) L 10/01/16 03:00 Hct 29.2 % (37.5-50.1) L 10/01/16 03:00 PT 14.5 Seconds (9.4-12.1) H 09/30/16 02:55 APTT 24.9 Seconds (26.0-36.0) L 09/30/16 02:55 ABG pH 7.49 pH Units (7.32-7.45) H 09/30/16 05:56 ABG pCO2 32 mmHg (35-45) L 09/30/16 05:56 ABG pO2 63 mmHg (85-104) L 09/30/16 05:56 ABG O2 Saturation 94 % (95-98) L 09/30/16 05:56 ABG Hematocrit 22 % (35-51) L 09/29/16 10:14 Mixed VBG pH 7.40 (7.34-7.36) H 09/30/16 08:22 Mixed VBG pCO2 43 mmHg (44-46) L 09/30/16 08:22 Mixed VBG pO2 64 mmHg (35-45) H 09/30/16 08:22 Mixed VBG Oxyhemoglobin 92.0 % (60-80) H 09/30/16 08:22 Potassium 2.7 mEq/L (3.5-5.3) L 09/29/16 10:14 Glucose 142 mg/dL (60-95) H 09/29/16 10:14 Glucose 136 mg/dL (70-99) H 10/01/16 03:00 POC Glucose 125 (58-89) H 10/01/16 07:16 - Clinical Findings Intake & Output: Intake & Output 09/30/16 10/01/16 10/01/16 23:59 07:59 15:59 Intake Total 100 / 100 Output Total 1485 / 1485 522 / 522 Balance -1385 / -1385 -522 / -522 - VTE Documentation of Mechanical Device: Graduated compression elastic hosiery Consult Discharge Plan - Plan Referrals: Kapil Lin MD [Primary Care Provider] - <Freddy Sheehan - Last Filed: 10/01/16 14:51> Date of Encounter: 10/01/16 Objective PUL Vital signs: Last Vital Signs Temp 98.0 F 10/01/16 11:32 Pulse 96 10/01/16 13:45 Resp 23 10/01/16 13:45 BP 124/68 10/01/16 13:45 Pulse Ox 89 10/01/16 13:45 Results - Laboratory Findings CBC and BMP: 10/01/16 03:00 10/01/16 03:00 ABG ABG pH 7.49 pH Units (7.32-7.45) H 09/30/16 05:56 ABG pCO2 32 mmHg (35-45) L 09/30/16 05:56 ABG pO2 63 mmHg (85-104) L 09/30/16 05:56 ABG O2 Saturation 94 % (95-98) L 09/30/16 05:56 PT/INR, D-dimer PT 14.5 Seconds (9.4-12.1) H 09/30/16 02:55 Abnormal lab findings: Abnormal lab results RBC 3.06 M/mcL (4.19-5.50) L 10/01/16 03:00 Hgb 9.6 g/dL (12.9-16.9) L 10/01/16 03:00 Hct 29.2 % (37.5-50.1) L 10/01/16 03:00 PT 14.5 Seconds (9.4-12.1) H 09/30/16 02:55 APTT 24.9 Seconds (26.0-36.0) L 09/30/16 02:55 ABG pH 7.49 pH Units (7.32-7.45) H 09/30/16 05:56 ABG pCO2 32 mmHg (35-45) L 09/30/16 05:56 ABG pO2 63 mmHg (85-104) L 09/30/16 05:56 ABG O2 Saturation 94 % (95-98) L 09/30/16 05:56 ABG Hematocrit 22 % (35-51) L 09/29/16 10:14 Mixed VBG pH 7.40 (7.34-7.36) H 09/30/16 08:22 Mixed VBG pCO2 43 mmHg (44-46) L 09/30/16 08:22 Mixed VBG pO2 64 mmHg (35-45) H 09/30/16 08:22 Mixed VBG Oxyhemoglobin 92.0 % (60-80) H 09/30/16 08:22 Potassium 2.7 mEq/L (3.5-5.3) L 09/29/16 10:14 Glucose 142 mg/dL (60-95) H 09/29/16 10:14 Glucose 136 mg/dL (70-99) H 10/01/16 03:00 POC Glucose 147 (58-89) H 10/01/16 11:11 - Clinical Findings Intake & Output: Intake & Output 09/30/16 10/01/16 10/01/16 23:59 07:59 15:59 Intake Total 100 / 100 960 / 960 Output Total 1485 / 1485 522 / 522 475 / 475 Balance -1385 / -1385 -522 / -522 485 / 485 - Attending Attestation I examined the patient reviewed documentation. All pertinent radiographic laboratory data were reviewed. Patient was discussed in multidisciplinary rounds and agree with resident's documentation with the following addition. Neuro: Conscious or not. Nonfocal exam. Cardiovascular: Status post three-vessel CABG. No evidence of significant complication. Defer management to primary team. Pulmonary: Patient successfully extubated yesterday to noninvasive positive pressure ventilation. So far tolerated well no evidence of respiratory failure. Recommend continued airway recruitment maneuvers with encouragement of frequent IS use. Also recommend early ambulation as soon as safely possible. Nephro: Patient tolerating diuresis well. Agree with plan for more diuresis today. GI: Patient tolerating regular diet. ID: No evidence of infection. HO: No acute issues. Endocrine: No acute issues. Disposition: Pulmonary will now sign off. Critical care time 35 minutes
[2016-10-01] MEDS: *HR* OxyCODONE/APAP 5/325 TABLET PO PRN (11:42)
[2016-10-01] MEDS: predniSONE 1 MG TABLET PO SCH (17:27)
[2016-10-02] MEDS: Metoclopramide 10 MG/2 ML VIAL IVP SCH ×2 (05:18→12:00)
[2016-10-02 06:55] LABS: Basophils % 0.1 %; Eosinophils # 0.1 K/mcL (0.0-0.6); Eosinophils % 1.2 %; Hematocrit 30.7 % (37.5-50.1); Hemoglobin 10.3 g/dL (12.9-16.9); Immature Granulocytes % 0.3 % (0-4); Lymphocytes # 1.1 K/mcL (0.6-4.6); Lymphocytes % 9.9 %; Mean Corpuscular HGB Conc 33.6 g/dL (31.6-35.5); Mean Corpuscular Hemoglobin 31.5 pg (28.0-33.3); Mean Corpuscular Volume 93.9 fL (83.0-100.0); Mean Platelet Volume 10.2 fL (9.4-12.4); Monocytes # 0.9 K/mcL (0.0-1.3); Monocytes % 8.3 %; Neutrophils # 8.9 K/mcL (1.6-8.9); Platelet Count 167 K/mcL (140-400); Red Blood Count 3.27 M/mcL (4.19-5.50); Red Cell Distribution Width 12.8 % (11.5-14.5); Segmented Neutrophils % 80.2 %
[2016-10-02 07:04] LABS: BUN/Creatinine Ratio 27 (6-26); Blood Urea Nitrogen 23 mg/dL (8-26); Carbon Dioxide 25 mEq/L (19-29); Chloride 104 mEq/L (98-109); Glucose 120 mg/dL (70-99); Osmolality,Calculated 291 (280-300); Potassium 3.8 mEq/L (3.5-4.5); Sodium 138 mEq/L (136-145); eGFR For African Americans > 60 (> 60); eGFR For Non-African Americans > 60 (> 60)
[2016-10-02] MEDS: Insulin LISPRO 300 UNITS/3 ML VIAL SQ SCH ×4 (08:18→20:45)
--- NOTE | 2016-10-02 08:20 | Cardiothoracic Progress Note ---
Date of Encounter: 10/02/16 Time of Encounter: 08:19 - Assessment and plan (1) Coronary artery disease Current Visit: Yes Status: Acute We will discontinue the Amos. We will transfer the patient to the floor. Qualifiers: Coronary Disease-Associated Artery/Lesion type: [place] artery [place] vs. transplanted heart: [place] heart Associated angina: with stable angina Qualified Code(s): I25.118 - Atherosclerotic heart disease of [place] coronary artery with other forms of angina pectoris - Subjective Interval history: The patient complains of mild constipation. Vital Signs, Last 4 Hours Temp Pulse Resp BP Pulse Ox 10/02/16 07:37 98.6 F 10/02/16 05:00 88 18 129/66 95 10/02/16 04:30 98.5 F 87 18 119/69 97 Oxgyen Flow Rate Oxygen Flow Rate (LPM) 5 Weight 09/30/16 10/01/16 10/02/16 23:59 23:59 23:59 Weight 108 kg Lungs are clear to percussion and auscultation. Heart is in a normal sinus rhythm with PACs. All incisions are healing well without signs of infection and the sternum is stable. - Labs 10/02/16 06:29 10/02/16 06:29 Lab Results, Last 24 hours 10/02/16 10/02/16 06:29 06:29 WBC 11.1 Hgb 10.3 L Hct 30.7 L Plt Count 167 Sodium 138 Potassium 3.8 Chloride 104 Carbon Dioxide 25 BUN 23 Creatinine 0.84 Glucose 120 H Calcium 9.0 - VTE Documentation of Mechanical Device: Graduated compression elastic hosiery Consult Discharge Plan - Plan Referrals: Kapil Lin MD [Primary Care Provider] -
[2016-10-02] MEDS ORDERED: MOM Conc 10 ML UD.LIQ PO PRN ×2 (08:22→18:52)
[2016-10-02] MEDS ORDERED: Diltiazem CD (24hr) 240 MG CAPSULE PO SCH (09:00)
[2016-10-02] MEDS: Chlorhexidine Rinse 15 ML MOUTHWASH MM SCH ×2 (09:16→20:31)
[2016-10-02] MEDS: Furosemide 20 MG/2 ML VIAL IVP SCH ×3 (09:16→20:45)
[2016-10-02] MEDS: Cholecalciferol (D-3) 1,000 UNIT TABLET PO SCH (09:16)
[2016-10-02] MEDS: *HR* OxyCODONE/APAP 5/325 TABLET PO PRN (09:16)
[2016-10-02] MEDS: predniSONE 5 MG TABLET PO SCH (09:17)
[2016-10-02] MEDS: Aspirin Enteric Coated 81 MG Tablet PO SCH (09:17)
[2016-10-02] MEDS: Isosorbide MONOnitrate (24 HR) 30 MG TAB.ER.24H PO SCH (09:17)
[2016-10-02] MEDS: Multivit/Ca/Min/Fe/FA 1 TAB TABLET PO SCH (09:17)
[2016-10-02] MEDS: Loratadine 10 MG TABLET PO SCH (09:17)
[2016-10-02] MEDS ORDERED: Dextrose Gel 15 GM PO PRN ×2 (18:52)
[2016-10-02] MEDS ORDERED: Albuterol 2.5 MG/3 ML NEBULIZER IH PRN (18:52)
[2016-10-02] MEDS ORDERED: D5% in Water 1,000 ML IVC PRN (18:52)
[2016-10-02] MEDS ORDERED: Naloxone 0.4 MG/ML INJ IVP PRN (18:52)
[2016-10-02] MEDS ORDERED: Ondansetron 4 MG/2 ML VIAL IVP PRN (18:52)
[2016-10-02] MEDS ORDERED: Acetaminophen 650 MG RECTAL SUPP RC PRN (18:52)
[2016-10-02] MEDS ORDERED: *HR* Dextrose 50 % in Water (Syg) 50 ML SYRINGE IVP PRN (18:52)
[2016-10-02] MEDS: *HR* Heparin 5,000 UNIT/ML VIAL SQ SCH (20:31)
[2016-10-03 05:26] LABS: BUN/Creatinine Ratio 23 (6-26); Blood Urea Nitrogen 19 mg/dL (8-26); Calcium 8.6 mg/dL (8.6-10.8); Carbon Dioxide 29 mEq/L (19-29); Chloride 102 mEq/L (98-109); Glucose 111 mg/dL (70-99); Osmolality,Calculated 293 (280-300); Potassium 3.6 mEq/L (3.5-4.5); Sodium 140 mEq/L (136-145); eGFR For African Americans > 60 (> 60); eGFR For Non-African Americans > 60 (> 60)
[2016-10-03 05:33] LABS: Basophils % 0.2 %; Eosinophils # 0.3 K/mcL (0.0-0.6); Eosinophils % 3.6 %; Hematocrit 28.9 % (37.5-50.1); Hemoglobin 9.6 g/dL (12.9-16.9); Immature Granulocytes % 0.3 % (0-4); Lymphocytes # 1.6 K/mcL (0.6-4.6); Lymphocytes % 16.6 %; Mean Corpuscular HGB Conc 33.2 g/dL (31.6-35.5); Mean Corpuscular Hemoglobin 31.4 pg (28.0-33.3); Mean Corpuscular Volume 94.4 fL (83.0-100.0); Mean Platelet Volume 10.3 fL (9.4-12.4); Monocytes % 10.2 %; Neutrophils # 6.6 K/mcL (1.6-8.9); Platelet Count 187 K/mcL (140-400); Red Blood Count 3.06 M/mcL (4.19-5.50); Red Cell Distribution Width 12.9 % (11.5-14.5); Segmented Neutrophils % 69.1 %
[2016-10-03] MEDS: *HR* Heparin 5,000 UNIT/ML VIAL SQ SCH ×2 (05:44→18:23)
[2016-10-03] MEDS: Insulin LISPRO 300 UNITS/3 ML VIAL SQ SCH ×4 (07:39→21:21)
--- NOTE | 2016-10-03 08:45 | Cardiothoracic Progress Note ---
Date of Encounter: 10/03/16 Time of Encounter: 08:43 - Assessment and plan (1) Coronary artery disease Current Visit: Yes Status: Acute Hopefully, the patient can be transferred to a room today when one is available. Hopefully, he can be discharged to a rehabilitation facility by Tuesday. Qualifiers: Coronary Disease-Associated Artery/Lesion type: [place] artery [place] vs. transplanted heart: [place] heart Associated angina: with stable angina Qualified Code(s): I25.118 - Atherosclerotic heart disease of [place] coronary artery with other forms of angina pectoris - Subjective Interval history: The patient is tolerating his diet. Vital Signs, Last 4 Hours Temp Resp BP Pulse Ox 10/03/16 07:42 98.5 F 10/03/16 07:32 20 124/57 92 Oxgyen Flow Rate Oxygen Flow Rate (LPM) 3 Clinical Data, last 8 Hours Output, Urine Amount 350 Weight 10/01/16 10/02/16 10/03/16 23:59 23:59 23:59 Weight 108 kg 104 kg Lungs are clear to percussion and auscultation. Heart is in a normal sinus rhythm with PACs. Yesterday he was in and out of A. fib. All incisions are healing well without signs of infection and the sternum is stable. - Labs 10/03/16 04:48 10/03/16 04:48 Lab Results, Last 24 hours 10/03/16 10/03/16 04:48 04:48 WBC 9.5 Hgb 9.6 L Hct 28.9 L Plt Count 187 Sodium 140 Potassium 3.6 Chloride 102 Carbon Dioxide 29 BUN 19 Creatinine 0.83 Glucose 111 H Calcium 8.6 - VTE Documentation of Mechanical Device: Graduated compression elastic hosiery Consult Discharge Plan - Plan Referrals: Kapil Lin MD [Primary Care Provider] -
[2016-10-03] MEDS: predniSONE 5 MG TABLET PO SCH (10:34)
[2016-10-03] MEDS: Isosorbide MONOnitrate (24 HR) 30 MG TAB.ER.24H PO SCH (10:34)
[2016-10-03] MEDS: Cholecalciferol (D-3) 1,000 UNIT TABLET PO SCH (10:37)
[2016-10-03] MEDS: Multivit/Ca/Min/Fe/FA 1 TAB TABLET PO SCH (10:37)
[2016-10-03] MEDS: Diltiazem CD (24hr) 240 MG CAPSULE PO SCH (10:37)
[2016-10-03] MEDS: Aspirin Enteric Coated 81 MG Tablet PO SCH (10:37)
[2016-10-03] MEDS: Chlorhexidine Rinse 15 ML MOUTHWASH MM SCH ×2 (10:38→21:20)
[2016-10-03] MEDS: Loratadine 10 MG TABLET PO SCH (10:39)
[2016-10-03] MEDS: *HR* OxyCODONE/APAP 5/325 TABLET PO PRN (16:31)
[2016-10-03] MEDS: predniSONE 1 MG TABLET PO SCH (18:30)
[2016-10-04] MEDS: *HR* Heparin 5,000 UNIT/ML VIAL SQ SCH ×2 (05:12→21:34)
[2016-10-04 05:21] LABS: Basophils % 0.1 %; Eosinophils # 0.4 K/mcL (0.0-0.6); Eosinophils % 4.9 %; Hematocrit 29.4 % (37.5-50.1); Hemoglobin 9.5 g/dL (12.9-16.9); Immature Granulocytes % 0.5 % (0-4); Lymphocytes # 1.3 K/mcL (0.6-4.6); Lymphocytes % 16.9 %; Mean Corpuscular HGB Conc 32.3 g/dL (31.6-35.5); Mean Corpuscular Hemoglobin 30.7 pg (28.0-33.3); Mean Corpuscular Volume 95.1 fL (83.0-100.0); Mean Platelet Volume 9.7 fL (9.4-12.4); Monocytes # 0.9 K/mcL (0.0-1.3); Neutrophils # 4.9 K/mcL (1.6-8.9); Nucleated Red Blood Cells 0.4 /100 WBC (0); Platelet Count 218 K/mcL (140-400); Red Blood Count 3.09 M/mcL (4.19-5.50); Red Cell Distribution Width 12.8 % (11.5-14.5); Segmented Neutrophils % 65.6 %
[2016-10-04 05:29] LABS: BUN/Creatinine Ratio 21 (6-26); Blood Urea Nitrogen 16 mg/dL (8-26); Calcium 8.6 mg/dL (8.6-10.8); Carbon Dioxide 30 mEq/L (19-29); Chloride 104 mEq/L (98-109); Glucose 98 mg/dL (70-99); Osmolality,Calculated 291 (280-300); Potassium 4.1 mEq/L (3.5-4.5); Sodium 140 mEq/L (136-145); eGFR For African Americans > 60 (> 60); eGFR For Non-African Americans > 60 (> 60)
[2016-10-04] MEDS: Insulin LISPRO 300 UNITS/3 ML VIAL SQ SCH ×4 (07:57→21:36)
--- NOTE | 2016-10-04 08:21 | Cardiothoracic Progress Note ---
Date of Encounter: 10/04/16 Time of Encounter: 08:19 - Assessment and plan (1) Coronary artery disease Current Visit: Yes Status: Acute The patient is recovering well from his CABG3. He is ambulating in the hallways without difficulty; however, require supplemental oxygen to maintain adequate oxygen saturation. The assessment and plan as outlined above was discussed with the patient and/or family members who expressed understanding and agreement. All questions were answered. Qualifiers: Coronary Disease-Associated Artery/Lesion type: [place] artery [place] vs. transplanted heart: [place] heart Associated angina: with stable angina Qualified Code(s): I25.118 - Atherosclerotic heart disease of [place] coronary artery with other forms of angina pectoris - Subjective Procedure(s) Performed: POD#5 S/P CABG3 Interval history: The patient remained hemodynamically stable overnight. He is ambulating in the hallways; however, requires supplemental oxygen. Vital Signs, Last 4 Hours Temp Pulse Resp BP Pulse Ox 10/04/16 07:55 17 96 10/04/16 05:00 72 10/04/16 04:42 97.9 F 75 17 127/68 96 Oxgyen Flow Rate Oxygen Flow Rate (LPM) 2.5 Clinical Data, last 8 Hours Output, Urine Amount 300 Output, Urine Amount 450 Weight 10/02/16 10/03/16 10/04/16 23:59 23:59 23:59 Weight 104 kg 104.3 kg - Physical Examination General: Conversant, No Apparent Distress Neck: No JVD, Normal carotid pulses Cardiac: Reg Rate and Rhythm, Normal S1 and S2, No Murmur Incision: No signs of infection, Dry/intact dressing Sternum: Stable Pacing Wires: In place Lungs: Normal Breath Sounds, No Wheeze, Rales, Rhonchi Neuro: Alert and responsive, No focal deficits noted Vascular: Normal capillary refill Musculoskeletal: No Chest Wall Tenderness Extremities: No Clubbing, No Cyanosis, No Edema - Labs 10/04/16 05:05 10/04/16 05:05 Lab Results, Last 24 hours 10/04/16 10/04/16 05:05 05:05 WBC 7.4 Hgb 9.5 L Hct 29.4 L Plt Count 218 Sodium 140 Potassium 4.1 Chloride 104 Carbon Dioxide 30 H BUN 16 Creatinine 0.78 Glucose 98 Calcium 8.6 - VTE Documentation of Mechanical Device: Graduated compression elastic hosiery Consult Discharge Plan - Plan Referrals: Kapil Lin MD [Primary Care Provider] -
[2016-10-04] MEDS: Cholecalciferol (D-3) 1,000 UNIT TABLET PO SCH (08:59)
[2016-10-04] MEDS: Loratadine 10 MG TABLET PO SCH (08:59)
[2016-10-04] MEDS: predniSONE 5 MG TABLET PO SCH (08:59)
[2016-10-04] MEDS: Multivit/Ca/Min/Fe/FA 1 TAB TABLET PO SCH (08:59)
[2016-10-04] MEDS: Chlorhexidine Rinse 15 ML MOUTHWASH MM SCH ×2 (09:00→21:35)
[2016-10-04] MEDS: Isosorbide MONOnitrate (24 HR) 30 MG TAB.ER.24H PO SCH (09:00)
[2016-10-04] MEDS: Aspirin Enteric Coated 81 MG Tablet PO SCH (09:00)
[2016-10-04] MEDS: Diltiazem CD (24hr) 240 MG CAPSULE PO SCH (09:02)
[2016-10-04] MEDS ORDERED: Bisacodyl 10 MG RECTAL SUPPOSITORY RC PRN (09:57)
[2016-10-04] MEDS ORDERED: Sennosides/Docusate Sodium TABLET PO PRN (10:54)
[2016-10-04] MEDS: predniSONE 1 MG TABLET PO SCH (21:35)
[2016-10-05] MEDS: *HR* Heparin 5,000 UNIT/ML VIAL SQ SCH ×2 (05:58→17:29)
--- NOTE | 2016-10-05 07:18 | Cardiothoracic Progress Note ---
Date of Encounter: 10/05/16 Time of Encounter: : - Assessment and plan (1) Coronary artery disease Current Visit: Yes Status: Acute The patient is recovering well from his CABG3. He is ambulating in the hallways without difficulty. He will be discharged home tomorrow if he continues to ambulate well. The assessment and plan as outlined above was discussed with the patient and/or family members who expressed understanding and agreement. All questions were answered. Qualifiers: Coronary Disease-Associated Artery/Lesion type: [place] artery [place] vs. transplanted heart: [place] heart Associated angina: with stable angina Qualified Code(s): I25.118 - Atherosclerotic heart disease of [place] coronary artery with other forms of angina pectoris - Subjective Procedure(s) Performed: POD#6 S/P CABG3 Interval history: The patient remained hemodynamically stable overnight. He ambulated in the hallways yesterday without oxygen. He has no complaints. Vital Signs, Last 4 Hours Temp Pulse Resp BP Pulse Ox 10/05/16 04:02 98.3 F 78 18 131/64 92 Oxgyen Flow Rate Oxygen Flow Rate (LPM) 2 Clinical Data, last 8 Hours Output, Urine Amount 300 Output, Urine Amount 300 Weight 10/03/16 10/04/16 10/05/16 23:59 23:59 23:59 Weight 104 kg 104.3 kg 103.7 kg - Physical Examination General: Conversant, No Apparent Distress Neck: No JVD, Normal carotid pulses Cardiac: Reg Rate and Rhythm, Normal S1 and S2, No Murmur Incision: No signs of infection, Dry/intact dressing Sternum: Stable Pacing Wires: In place Lungs: Normal Breath Sounds, No Wheeze, Rales, Rhonchi Neuro: Alert and responsive, No focal deficits noted Vascular: Normal capillary refill Musculoskeletal: No Chest Wall Tenderness Extremities: No Clubbing, No Cyanosis, No Edema - Labs 10/04/16 05:05 10/04/16 05:05 - VTE Documentation of Mechanical Device: Graduated compression elastic hosiery Consult Discharge Plan - Plan Referrals: Jeffrey Mark CNP [Advanced Practice Nurse] - 10/26/16 11:30 am Kapil Lin MD [Primary Care Provider] - 10/11/16 1:00 pm () Lorne Smith MD [Partnered Physician] - 11/04/16 1:45 pm
[2016-10-05] MEDS: Isosorbide MONOnitrate (24 HR) 30 MG TAB.ER.24H PO SCH (07:43)
[2016-10-05] MEDS: Aspirin Enteric Coated 81 MG Tablet PO SCH (07:43)
[2016-10-05] MEDS: Cholecalciferol (D-3) 1,000 UNIT TABLET PO SCH (07:43)
[2016-10-05] MEDS: Diltiazem CD (24hr) 240 MG CAPSULE PO SCH (07:43)
[2016-10-05] MEDS: predniSONE 5 MG TABLET PO SCH (07:44)
[2016-10-05] MEDS: Loratadine 10 MG TABLET PO SCH (07:44)
[2016-10-05] MEDS: Chlorhexidine Rinse 15 ML MOUTHWASH MM SCH ×2 (07:44→20:31)
[2016-10-05] MEDS: Multivit/Ca/Min/Fe/FA 1 TAB TABLET PO SCH (07:44)
[2016-10-05] MEDS: Insulin LISPRO 300 UNITS/3 ML VIAL SQ SCH ×4 (08:12→20:33)
[2016-10-05] MEDS: *HR* OxyCODONE/APAP 5/325 TABLET PO PRN (14:51)
[2016-10-05] MEDS: predniSONE 1 MG TABLET PO SCH (17:29)
[2016-10-06] MEDS: *HR* OxyCODONE/APAP 5/325 TABLET PO PRN (00:17)
[2016-10-06] MEDS: *HR* Heparin 5,000 UNIT/ML VIAL SQ SCH (05:35)
[2016-10-06] MEDS: Insulin LISPRO 300 UNITS/3 ML VIAL SQ SCH (07:47)
[2016-10-06] MEDS: predniSONE 5 MG TABLET PO SCH (08:39)
[2016-10-06] MEDS: Multivit/Ca/Min/Fe/FA 1 TAB TABLET PO SCH (08:39)
[2016-10-06] MEDS: Isosorbide MONOnitrate (24 HR) 30 MG TAB.ER.24H PO SCH (08:39)
[2016-10-06] MEDS: Cholecalciferol (D-3) 1,000 UNIT TABLET PO SCH (08:39)
[2016-10-06] MEDS: Aspirin Enteric Coated 81 MG Tablet PO SCH (08:40)
[2016-10-06] MEDS: Loratadine 10 MG TABLET PO SCH (08:40)
[2016-10-06] MEDS: Chlorhexidine Rinse 15 ML MOUTHWASH MM SCH (08:40)
[2016-10-06] MEDS: Diltiazem CD (24hr) 240 MG CAPSULE PO SCH (08:40)
--- NOTE | 2016-10-06 09:10 | Discharge Summary ---
Date of Encounter: 10/06/16 Time of Encounter: 09:05 - Discharge Diagnosis (1) Coronary artery disease Priority: Primary Status: Acute Qualifiers: Coronary Disease-Associated Artery/Lesion type: [place] artery [place] vs. transplanted heart: [place] heart Associated angina: with stable angina Qualified Code(s): I25.118 - Atherosclerotic heart disease of [place] coronary artery with other forms of angina pectoris - Discharge Medications Prescriptions: OxyCODONE/APAP 5/325 [Percocet 5/325 MG] 1 each PO Q4HR PRN #30 tablet PRN Reason: Moderate Pain Diltiazem CD (24hr) [Cardizem CD] 240 mg PO DAILY #30 cap.er.24h Home Medications: Aspirin [Lo-Dose Aspirin EC] 81 mg PO DAILY 09/23/16 [History] Cholecalciferol (Vitamin D3) [Vitamin D3] 2,000 unit PO DAILY 09/23/16 [History] Clopidogrel [Plavix] 75 mg PO DAILY 09/23/16 [History] Isosorbide MONOnitrate (24 HR) [Imdur] 60 mg PO DAILY 09/23/16 [History] Loratadine [Allergy Relief] 10 mg PO DAILY 09/23/16 [History] Metoprolol XL (24 HR) Succ [Toprol Xl] 50 mg PO DAILY 09/23/16 [History] Multivit-Min/FA/Lycopen/Lutein [Centrum Silver Tablet] 1 each PO DAILY 09/23/16 [History] Nitroglycerin [Nitrostat] 0.4 mg SL Q5M PRN 09/23/16 [History] Omeprazole 20 mg PO DAILY 09/23/16 [History] Simvastatin [Zocor] 40 mg PO HS 09/23/16 [History] predniSONE [PredniSONE] 5 mg PO BIDWM 09/23/16 [History] Diltiazem CD (24hr) [Cardizem CD] 240 mg PO DAILY #30 cap.er.24h 10/06/16 [Rx] OxyCODONE/APAP 5/325 [Percocet 5/325 MG] 1 each PO Q4HR PRN #30 tablet 10/06/16 [Rx] Allergies/Adverse Reactions: Allergies No Known Allergies Allergy (Verified 09/23/16 08:40) Date of admission: 09/23/16 14:33 Primary care physician: Kapil Lin MD Consults: 09/24/16 11:19 Consult to Cardiac Rehabilitation-Phase1 [CONS] Routine Comment: for CABG nect Tuesday Reason for Consult: CAD Call Completed: No 09/29/16 11:22 Consult to Cardiac Rehabilitation-Phase1 [CONS] Routine Comment: Reason for Consult: Post open heart Call Completed: Yes 09/30/16 08:15 Consult to Pulmonary Rehab [CONS] Routine Reason for Consult: Ventilator management Time Notified: 08:06 Call Completed: Yes 10/02/16 18:52 Consult for Pharmacy Education [CONS] Routine Reason for Consult: Post-Op Heart Call Completed: Yes Consult to Occupational Therapy [CONS] Routine Comment: Evaluate, develop and implement POC Reason for Consult: Post-Op Heart Consult to Physical Therapy [CONS] Routine Comment: Evaluate, develop and implement POC Reason for Consult: Post open heart Procedure(s) Performed: September 29, 2016. Coronary artery bypass grafting 3 utilizing the left internal mammary artery. Discharging clinician: Timur Campbell Anticipated date of discharge: 10/06/16 - Patient Status Disposition: Home, Self-Care Condition: Fair Functional capacity at discharge: independent ambulation Overall status at discharge: patient is progressing back to baseline - Discharge Instructions Instructions: Coronary Artery Bypass Graft (DC), Heart Healthy Diet (DC) Follow Up With: Jeffrey Mark CNP [Advanced Practice Nurse] - 10/26/16 11:30 am Kapil Lin MD [Primary Care Provider] - 10/11/16 1:00 pm () Lorne Smith MD [Partnered Physician] - 11/04/16 1:45 pm - Hospital Course Hospital course: Mr. Bello is a 81 year old male The patient is an 81-year-old gentleman who presented with angina. Cardiac catheterization revealed triple-vessel disease and he was referred for surgery. He was on Plavix and this was stopped prior to the operating room. On September 29, 2016, my partner Dr. Smith took the patient to the operating room for coronary artery bypass grafting 3, utilizing his left internal mammary artery. Postoperatively, the patient was seen by the pulmonary service. He did have atrial fibrillation which was controlled with Cardizem. On October 01, his chest tubes were removed. Chest x-ray revealed no pneumothorax. The patient otherwise did well and was discharged on October 06. At that time, he was afebrile. Lungs were clear to percussion and auscultation. Heart was in a normal sinus rhythm. All incisions were healing well without signs of infection and the sternum was stable. Discharge medications are on the med rec and include Percocet for pain. I did check the [place] automated Rx reporting system. He was postoperative and was given a one-week supply. Appropriate precautions were given. I told him not to take his tramadol while he was on the Percocet. He was to return to his previous a regular diet. He was to walk as much as possible, but to avoid heavy lifting for a total of 3 months after surgery. He was to avoid driving for 1 month. He was to follow-up in see Dr. Smith in the office in 4 weeks as directed. He was to follow up with his section hand and family doctor as directed. He was to call sooner for any difficulties. - Time Spent with Patient Total time spent providing and/or coordinating discharge services: Physical Examination Vital Signs, Last 4 Hours Temp Pulse Resp BP Pulse Ox 10/06/16 07:40 18 95 10/06/16 07:26 78 10/06/16 07:10 97.8 F 78 16 150/73 93 10/06/16 05:30 97.8 F 76 16 145/74 94 Open Heart Registry Aspirin Cont/Prescribed at DC: Yes Beta [place] Cont/Prescribed at DC: Yes Statin Cont/Prescribed at DC: Yes JACQUES/ARB Cont/Prescribed at DC: Not indicated - VTE Documentation of Mechanical Device: Graduated compression elastic hosiery
[2016-10-06 10:16] VITALS: BP 158/67
--- NOTE | 2016-10-06 10:27 | Physician Discharge Referral ---
Home Health/Hosp Referral Info Transfer to: Home Health Attending Provider: Dr. Smith Provider in Charge Post Discharge: PCP - Diagnosis (1) Coronary artery disease Priority: Primary Status: Acute - Respiratory Orders Smoking Cessation: Smoking cessation has been advised. For more information, call the [place] Tobacco Quit Line at 6-281-VKAN-NOW. - Dressing/Wound Care Site: Change chest tube dressing once per day-dry 4x4's Type of Dressing/Treatments w/Frequency: OK to leave incision open - Diet/Nutrition Diet/Nutrition Orders: Regular - Activity Activity Orders: Up ad fco, Ambulate, Chair - Services Needed Following services are medically necessary services: Home Health Aide, Physical Therapy - Transfer Medications Prescriptions: OxyCODONE/APAP 5/325 [Percocet 5/325 MG] 1 each PO Q4HR PRN #30 tablet PRN Reason: Moderate Pain Diltiazem CD (24hr) [Cardizem CD] 240 mg PO DAILY #30 cap.er.24h Home Medications: Aspirin [Lo-Dose Aspirin EC] 81 mg PO DAILY 09/23/16 [History] Cholecalciferol (Vitamin D3) [Vitamin D3] 2,000 unit PO DAILY 09/23/16 [History] Clopidogrel [Plavix] 75 mg PO DAILY 09/23/16 [History] Isosorbide MONOnitrate (24 HR) [Imdur] 60 mg PO DAILY 09/23/16 [History] Loratadine [Allergy Relief] 10 mg PO DAILY 09/23/16 [History] Metoprolol XL (24 HR) Succ [Toprol Xl] 50 mg PO DAILY 09/23/16 [History] Multivit-Min/FA/Lycopen/Lutein [Centrum Silver Tablet] 1 each PO DAILY 09/23/16 [History] Nitroglycerin [Nitrostat] 0.4 mg SL Q5M PRN 09/23/16 [History] Omeprazole 20 mg PO DAILY 09/23/16 [History] Simvastatin [Zocor] 40 mg PO HS 09/23/16 [History] predniSONE [PredniSONE] 5 mg PO BIDWM 09/23/16 [History] Diltiazem CD (24hr) [Cardizem CD] 240 mg PO DAILY #30 cap.er.24h 10/06/16 [Rx] OxyCODONE/APAP 5/325 [Percocet 5/325 MG] 1 each PO Q4HR PRN #30 tablet 10/06/16 [Rx] Allergies/Adverse Reactions: Allergies No Known Allergies Allergy (Verified 09/23/16 08:40) Certification: Further, I certify that my clinical findings support that this patient is homebound (i.e. absences from home require considerable and taxing effort and are for medical reasons or islam services or infrequently or short duration when for other reasons) because: Homebound Reason: Severity of cardiac or pulmonary status limits activity tolerance (s/p CABG) Attestation: My signature below is to certify that this patient is under my care and that I, or nurse practitioner, or a physician's graduate assistant athletic trainer working with me, has a face-to -face encounter with this patient.
== END 2016-10-06 10:25 | disposition home or self-care (01) | DRG 234 ==
LOC: INVDIALAB 08:31 → SUATTDRO 14:33 → 2NENU 14:33 → ICNU 09-29 08:14 → 2NNU 10-03 17:20
PROVIDERS: ADMIT Emergency Medicine; ATTEND Internal Medicine